=== PATIENT | female | born 1970 | race African-American/Black ===

== ENCOUNTER 2017-10-02 16:25 | Emergency (ER) | payer SELFPAY ==
--- NOTE | 2017-10-02 16:53 | EDPHYS ---
Physician Documentation [facility] Name: Chantelle Menezes Age: 46 yrs Sex: Female : 1970 Arrival Date: 10/02/2017 Time: 16:28 Bed 18 Private MD: ED Physician Zan Baez HPI: 10/02 16:49 This 46 yrs old Black Female presents to ER via Ambulatory with complaints of Abscess. gs 16:49 The patient presents with pain, swelling. The problem is located in the lower right gs first molar. Onset: The symptoms/episode began/occurred 3 day(s) ago. Duration: The symptoms are continuous. Modifying factors: the symptoms are aggravated by chewing. Associated signs and symptoms: Pertinent negatives: fever, inability to eat. Severity of symptoms: At their worst the symptoms were moderate, in the emergency department the symptoms are unchanged. The patient has experienced similar episodes in the past, a few times. 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 - Social history:: Smoking status: Patient uses tobacco products, smokes one-half pack cigarettes per day. - Ebola Screening: : Patient denies travel to an Ebola-affected area in the 21 days before illness onset. ROS: 16:49 All other systems are negative. gs Exam: 16:49 Head/Face: Normocephalic, atraumatic. Eyes: Pupils equal round and reactive to light, gs extra-ocular motions intact. Lids and lashes normal. Conjunctiva and sclera are non-icteric and not injected. Cornea within normal limits. Periorbital areas with no swelling, redness, or edema. Neck: Trachea midline, no thyromegaly or masses palpated, and no cervical lymphadenopathy. Supple, full range of motion without nuchal rigidity, or vertebral point tenderness. No Meningismus. Chest/axilla: Normal chest wall appearance and motion. Nontender with no deformity. No lesions are appreciated. Cardiovascular: Regular rate and rhythm with a normal S1 and S2. No gallops, murmurs, or rubs. Normal PMI, no JVD. No pulse deficits. Respiratory: Lungs have equal breath sounds bilaterally, clear to auscultation and percussion. No rales, rhonchi or wheezes noted. No increased work of breathing, no retractions or nasal flaring. Abdomen/GI: Soft, non-tender, with normal bowel sounds. No distension or tympany. No guarding or rebound. No evidence of tenderness throughout. Back: No spinal tenderness. No costovertebral tenderness. Full range of motion. 16:49 Constitutional: The patient appears alert, awake, uncomfortable. 16:49 ENT: Dental exam: abscess, that is mild, specifically in the lower right first molar (#30), periapical minimal fluctuance if any. tender. Vital Signs: 16:32 BP 140 / 105; Pulse 93; Resp 18; Temp 97.4(TE); Pulse Ox 100% on R/A; Weight 122.47 kg [facility] (R); Height 5 ft. 7 in. (170.18 cm); Pain 7/10; 17:04 BP 142 / 101; Pulse 68; Resp 16; Pulse Ox 99% on R/A; em 16:32 Body Mass Index 42.29 (122.47 kg, 170.18 cm) [facility] MDM: 16:48 Patient medically screened. 16:49 Data reviewed: vital signs, nurses notes. gs Administered Medications: No medications were administered Disposition: 10/02/17 16:52 Discharged to Home. Impression: Periapical abscess with sinus. - Condition is Stable. - Discharge Instructions: Dental Abscess. - Prescriptions for Amoxicillin 875 mg Oral Tablet - take 1 tablet by ORAL route every 12 hours for 10 days; 14 tablet. Tylenol- Codeine #4 300-60 mg Oral Tablet - take 1 tablet by ORAL route every 6 hours As needed; 10 tablet. - Medication Reconciliation Form, Thank You Letter, Antibiotic Education, Prescription Opioid Use form. - Follow up: Private Physician; When: 1 - 2 days; Reason: Re-evaluation by your physician. Signatures: Shanon Rob RN RN aj1 Evelio Thomas, SENIOR HR MANAGER SENIOR HR MANAGER em Zan Baez MD MD Corrections: (The following items were deleted from the chart) 17:09 16:52 10/02/2017 16:52 Discharged to Home. Impression: Periapical abscess with sinus. em Condition is Stable. Forms are Medication Reconciliation Form, Thank You Letter, Antibiotic Education, Prescription Opioid Use. Follow up: Private Physician; When: 1 - 2 days; Reason: Re-evaluation by your physician. gs
--- NOTE | 2017-10-02 16:53 | ER ---
Nurse's Notes [facility] Name: Chantelle Menezes Age: 46 yrs Sex: Female : 1970 Arrival Date: 10/02/2017 Time: 16:28 Bed 18 Private MD: Diagnosis: Periapical abscess with sinus Presentation: 10/02 16:30 Presenting complaint: Patient states: Tooth abscess for the past 3 days. Patient has aj1 not seen a dentist regarding this complaint. Reports nausea, denies fever, vomiting. Transition of care: patient was not received from another setting of care. Onset of symptoms was September 29, 2017. Risk Assessment: Do you want to hurt yourself or someone else? Patient reports no desire to harm self or others. Initial Sepsis Screen: Does the patient meet any 2 criteria? No. Patient's initial sepsis screen is negative. Does the patient have a suspected source of infection? No. Patient's initial sepsis screen is negative. Care prior to arrival: None. 16:30 Method Of Arrival: Ambulatory aj1 16:30 Acuity: TERRY 4 aj1 Triage Assessment: 16:32 General: Appears in no apparent distress. uncomfortable, Behavior is calm, cooperative, aj1 appropriate for age. Pain: Complains of pain in mouth Pain currently is 7 out of 10 on a pain scale. EENT: Reports tooth pain. Neuro: Level of Consciousness is awake, alert, obeys commands, Speech is normal. Cardiovascular: Patient's skin is warm and dry. Respiratory: Airway is patent Respiratory effort is even, unlabored, Respiratory pattern is regular, symmetrical. 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 - Social history:: Smoking status: Patient uses tobacco products, smokes one-half pack cigarettes per day. - Ebola Screening: : Patient denies travel to an Ebola-affected area in the 21 days before illness onset. Screenin:39 Abuse screen: Denies threats or abuse. Nutritional screening: No deficits noted. em Tuberculosis screening: No symptoms or risk factors identified. Fall Risk None identified. Assessment: 16:47 General: Appears in no apparent distress. uncomfortable, Behavior is calm, cooperative. em Pain: Complains of pain in lower right first molar Pain currently is 7 out of 10 on a pain scale. Pain began 2-3 days ago. Neuro: Level of Consciousness is awake, alert, obeys commands, Oriented to person, place, time, situation. Cardiovascular: Capillary refill < 3 seconds Patient's skin is warm and dry. Respiratory: Airway is patent Respiratory effort is even, unlabored, Respiratory pattern is regular, symmetrical. EENT: Oral mucosa is moist. Derm: Skin is intact, Skin is pink, warm \T\ dry. Musculoskeletal: Range of motion: intact in all extremities. 17:00 Reassessment: Patient appears in no apparent distress at this time. I agree with above iw assessment by Evelio Thomas LVN. Vital Signs: 16:32 BP 140 / 105; Pulse 93; Resp 18; Temp 97.4(TE); Pulse Ox 100% on R/A; Weight 122.47 kg aj1 (R); Height 5 ft. 7 in. (170.18 cm); Pain 7/10; 17:04 BP 142 / 101; Pulse 68; Resp 16; Pulse Ox 99% on R/A; em 16:32 Body Mass Index 42.29 (122.47 kg, 170.18 cm) aj1 ED Course: 16:28 Patient arrived in ED. mr 16:32 Triage completed. aj1 16:32 Arm band placed on Patient placed in an exam room. aj1 16:36 Evelio Thomas LVN is Primary Nurse. em 16:38 Patient has correct armband on for positive identification. Bed in low position. Call em light in reach. 16:38 No provider procedures requiring assistance completed. em 16:45 Zan Baez MD is Attending Physician. 17:05 Patient did not have IV access during this emergency room visit. em Administered Medications: No medications were administered Outcome: 16:52 Discharge ordered by . gs 17:05 Discharged to home ambulatory. em 17:05 Condition: good 17:05 Discharge instructions given to patient, Instructed on discharge instructions, follow up and referral plans. no drinking with medication, medication usage, Demonstrated understanding of instructions, follow-up care, medications, Prescriptions given X 2. 17:09 Patient left the ED. em Signatures: Shanon Rob RN RN aj1 Rylee Ivory mr Evelio Thomas, CATIA DESIGNER CATIA DESIGNER em Esme Whitman RN RN iw Zan Baez MD MD gs
== END 2017-10-02 17:09 | disposition home or self-care (01) ==
LOC: ER 16:25
DX: K04.7 Periapical abscess without sinus (principal); E11.9 Type 2 diabetes mellitus without complications; F17.210 Nicotine dependence, cigarettes, uncomplicated; Z79.4 Long term (current) use of insulin
CPT/HCPCS: 99282

== ENCOUNTER 2018-09-23 08:57 | Emergency (ER) | payer SELFPAY ==
[2018-09-23] MEDS ORDERED: LIDOCAINE 1% MPF 5 ML VIAL ONE (09:52)
--- NOTE | 2018-09-23 10:26 | ER ---
Nurse's Notes [facility] Name: Chantelle Menezes Age: 47 yrs Sex: Female : 1970 Arrival Date: 09/23/2018 Time: 09:00 Bed 7 Private MD: Diagnosis: Scalp abscess Presentation: 09/23 09:15 Presenting complaint: Patient states: right occipital abscess for a couple of weeks. sv Denies chills/fever/n/v. Transition of care: patient was not received from another setting of care. Onset of symptoms was August 2018. Risk Assessment: Do you want to hurt yourself or someone else? Patient reports no desire to harm self or others. Initial Sepsis Screen: Does the patient meet any 2 criteria? No. Patient's initial sepsis screen is negative. Does the patient have a suspected source of infection? No. Patient's initial sepsis screen is negative. Care prior to arrival: None. 09:15 Method Of Arrival: Ambulatory sv 09:15 Acuity: TERRY 3 sv Triage Assessment: 09:24 General: Appears in no apparent distress. uncomfortable, well groomed, well developed, sv Behavior is calm, cooperative, appropriate for age. Pain: Complains of pain in scalp Pain currently is 7 out of 10 on a pain scale. Neuro: Level of Consciousness is awake, alert, obeys commands, Oriented to person, place, time, situation, Moves all extremities. Full function Gait is steady. Respiratory: Respiratory effort is even, unlabored, Respiratory pattern is regular, symmetrical. Derm: Skin is pink, warm \T\ dry. Musculoskeletal: Range of motion: intact in all extremities. Historical: - Allergies: : No Known Allergies; sv - Home Meds: :23 Insulin: Novolin 70/30 Sub-Q twice a day [Active]; sv - PMHx: 09:23 Diabetes - IDDM; sv - PSHx: 09:23 eye surgery; Thyroidectomy; Hysterectomy; sv - Immunization history:: Adult Immunizations up to date, Flu vaccine is up to date. - Social history:: Smoking status: Patient uses tobacco products, smokes one-half pack cigarettes per day, Patient uses alcohol, on a daily basis. - Ebola Screening: : No symptoms or risks identified at this time. - Family history:: not pertinent. - Hospitalizations: : No recent hospitalization is reported. Screenin:24 Abuse screen: Denies threats or abuse. Denies injuries from another. Nutritional sv screening: No deficits noted. Tuberculosis screening: No symptoms or risk factors identified. Fall Risk None identified. Assessment: 09:41 Reassessment: Patient appears in no apparent distress at this time. No changes from sv previously documented assessment. Patient and/or family updated on plan of care and expected duration. Pain level reassessed. Patient is alert, oriented x 3, equal unlabored respirations, skin warm/dry/pink. Vital Signs: 09:23 BP 142 / 91; Pulse 97; Resp 18; Temp 97.6; Pulse Ox 99% ; Weight 99.79 kg; Height 5 ft. sv 7 in. (170.18 cm); Pain 7/10; 09:23 Body Mass Index 34.46 (99.79 kg, 170.18 cm) sv ED Course: 09:00 Patient arrived in ED. as 09:15 Malissa Fairchild RN is Primary Nurse. sv 09:19 Triage completed. sv 09:22 Tru Hughes MD is Attending Physician. rn 09:24 Arm band placed on. sv 09:24 Patient has correct armband on for positive identification. Bed in low position. Call sv light in reach. Pulse ox on. NIBP on. Door closed. Head of bed elevated. 09:25 ED physician to see patient. sv 09:42 Placed in gown. sv 09:44 Assist provider with I \T\ D: Set up I\T\D tray. sv 10:17 Assist provider with I \T\ D: of an abscess on right occipital head Performed by Kaleigh Adair PROFILER OPERATOR-C Dressing with 4X4s, tape Patient tolerated well. 10:24 Denny Welch MD is Referral Physician. rn 10:25 Wound care: located on right base of the skull was cleaned with soap and water, dressed sg with 4X4s, band aid, Patient tolerated well. 10:49 Patient did not have IV access during this emergency room visit. sv Administered Medications: 10:00 Drug: Lidocaine (1 %) 1 vials {Note: given to Kaleigh MANZANARES for procedure.} Volume: 5 ml; sv Route: Infiltration; 10:18 Drug: Clindamycin 300 mg Route: PO; sv 10:49 Follow up: Response: No adverse reaction sv Point of Care Testing: Blood Glucose: 09:24 Blood Glucose: 295 mg/dL; sv Ranges: Outcome: 10:25 Discharge ordered by . rn 10:49 Patient left the ED. sg 10:49 Discharged to home ambulatory. sv 10:49 Condition: stable 10:49 Discharge instructions given to patient, Instructed on discharge instructions, follow up and referral plans. medication usage, Demonstrated understanding of instructions, follow-up care, medications, Prescriptions given X 1. Signatures: Malissa Fairchild RN RN sv Gay, Steven, RN RN sg Martinez, Amelia as Nieto, Roman, MD MD rn
--- NOTE | 2018-09-23 10:27 | EDPHYS ---
Physician Documentation [facility] Name: Chantelle Menezes Age: 47 yrs Sex: Female : 1970 Arrival Date: 09/23/2018 Time: 09:00 Bed 7 Private MD: ED Physician Tru Hughes HPI: 09/23 10:21 This 47 yrs old Black Female presents to ER via Ambulatory with complaints of Boil. rn 10:21 the patient presents with a swollen area of the right base of the skull. Description: rn The affected area is small, draining, erythematous, fluctuant. Onset: The symptoms/episode began/occurred 2 week(s) ago. Modifying factors: the symptoms are alleviated by nothing, the symptoms are aggravated by squeezing the lesion and expressing the contents, touching. Severity of symptoms: At their worst the symptoms were moderate, in the emergency department the symptoms are unchanged. The patient has not experienced similar symptoms in the past. Historical: - Allergies: : No Known Allergies; sv - Home Meds: : Insulin: Novolin 70/30 Sub-Q twice a day [Active]; sv - PMHx: 09: Diabetes - IDDM; sv - PSHx: :23 eye surgery; Thyroidectomy; Hysterectomy; sv - Immunization history:: Adult Immunizations up to date, Flu vaccine is up to date. - Social history:: Smoking status: Patient uses tobacco products, smokes one-half pack cigarettes per day, Patient uses alcohol, on a daily basis. - Ebola Screening: : No symptoms or risks identified at this time. - Family history:: not pertinent. - Hospitalizations: : No recent hospitalization is reported. ROS: 10:21 Constitutional: Negative for fever, chills, and weight loss, Eyes: Negative for injury, rn pain, redness, and discharge, ENT: Negative for injury, pain, and discharge, Neck: Negative for injury, pain, and swelling, Cardiovascular: Negative for chest pain, palpitations, and edema, Respiratory: Negative for shortness of breath, cough, wheezing, and pleuritic chest pain, Back: Negative for injury and pain, Skin: + abscess on scalp at base of head Neuro: Negative for headache, weakness, numbness, tingling, and seizure. Exam: 10:21 Constitutional: This is a well developed, well nourished patient who is awake, alert, rn and in no acute distress. Head/Face: Normocephalic, atraumatic. Skin: + 3-4 cm area of induration and central fluctuance at right base of head on scalp, multiple surrounding pustules, not overlying spine.Does not extend to right ear or neck. MS/ Extremity: Pulses equal, no cyanosis. Neurovascular intact. Full, normal range of motion. Equal circumference. Neuro: Awake and alert, GCS 15, oriented to person, place, time, and situation. Cranial nerves II-XII grossly intact. Motor strength 5/5 in all extremities. Sensory grossly intact. Cerebellar exam normal. Normal gait. Vital Signs: 09:23 BP 142 / 91; Pulse 97; Resp 18; Temp 97.6; Pulse Ox 99% ; Weight 99.79 kg; Height 5 ft. sv 7 in. (170.18 cm); Pain 7/10; 09:23 Body Mass Index 34.46 (99.79 kg, 170.18 cm) sv Procedures: 10:14 I \T\ D: Incision and drainage was performed for an abscess of the right base of the kb skull Prepped with Betadine, Anesthetized with 2.5 ml's 1% Lidocaine. Incised with #11 blade. Drained large amount purulent fluid. Cultures obtained. Abscess cavity explored. Packed with iodoform gauze, Dressing: sterile 4x4 gauze, the patient tolerated the procedure well. MDM: 09:23 Patient medically screened. rn 10:21 Differential diagnosis: abscess. Data reviewed: vital signs, nurses notes, and as a rn result, I will discharge patient. Counseling: I had a detailed discussion with the patient and/or guardian regarding: the historical points, exam findings, and any diagnostic results supporting the discharge/admit diagnosis, the need for outpatient follow up, to return to the emergency department if symptoms worsen or persist or if there are any questions or concerns that arise at home. Response to treatment: the patient's symptoms have markedly improved after treatment, and as a result, I will discharge patient. Special discussion: I discussed with the patient/guardian in detail that at this point there is no indication for admission to the hospital. It is understood, however, that if the symptoms persist or worsen the patient needs to return immediately for re-evaluation. 09/23 09:20 Order name: Glucose, Ancillary Testing; Complete Time: 09:30 EDMS 09/23 09:31 Order name: Wound Culture rn 09/23 09:31 Order name: Incision \T\ Drainage Setup; Complete Time: 09:41 rn Administered Medications: 10:00 Drug: Lidocaine (1 %) 1 vials {Note: given to Kaleigh BOOM TRUCK DRIVER for procedure.} Volume: 5 ml; sv Route: Infiltration; 10:18 Drug: Clindamycin 300 mg Route: PO; sv 10:49 Follow up: Response: No adverse reaction sv Point of Care Testing: Blood Glucose: 09:24 Blood Glucose: 295 mg/dL; sv Ranges: Critical Glucose Levels:Adult <50 mg/dl or >400 mg/dl <40 mg/dl or >180 mg/dl Disposition: 16:50 Co-signature as Attending Physician, Tru Hughes MD. rn Disposition: 09/23/18 10:25 Discharged to Home. Impression: Scalp abscess. - Condition is Stable. - Discharge Instructions: Skin Abscess, Wound Packing. - Prescriptions for Clindamycin HCl 300 mg Oral Capsule - take 1 capsule by ORAL route every 6 hours for 10 days; 40 capsule. - Medication Reconciliation Form, Thank You Letter, Antibiotic Education, Prescription Opioid Use form. - Follow up: Denny Welch MD; When: 2 - 3 days; Reason: Recheck today's complaints, Re-evaluation by your physician. - Problem is new. - Symptoms have improved. Signatures: Dispatcher [employer] [facility] Kaleigh Adair, ALLIED HEALTH TEACHER-C ALLIED HEALTH TEACHER-CkMalissa Gaston RN RN sv Gay, Steven, RN RN sg Nieto, Roman, MD MD internet architect: (The following items were deleted from the chart) 10:15 10:14 I \T\ D: Incision and drainage was performed for an abscess of the right base of kb the skull Prepped with Betadine, Anesthetized with 2.5 ml's 1% Lidocaine. Incised with #11 blade. Drained large amount purulent fluid. Abscess cavity explored. Packed with iodoform gauze, Dressing: sterile 4x4 gauze, the patient tolerated the procedure well, kb 10:49 10:25 09/23/2018 10:25 Discharged to Home. Impression: Scalp abscess. Condition is sg Stable. Forms are Medication Reconciliation Form, Thank You Letter, Antibiotic Education, Prescription Opioid Use. Follow up: Denny Welch; When: 2 - 3 days; Reason: Recheck today's complaints, Re-evaluation by your physician. Problem is new. Symptoms have improved. rn
[2018-09-23] MEDS ORDERED: CLINDAMYCIN HCL 150 MG CAP ONE (10:31)
== END 2018-09-23 10:49 | disposition home or self-care (01) ==
LOC: ER 08:57
PROC: 0J900ZZ Drainage of Scalp Subcutaneous Tissue and Fascia, Open Approach (ICD-10-PCS; principal; 2018-09-23)
DX: L02.811 Cutaneous abscess of head [any part, except face] (principal); E11.9 Type 2 diabetes mellitus without complications; Z79.4 Long term (current) use of insulin; F17.210 Nicotine dependence, cigarettes, uncomplicated
CPT/HCPCS: 82962; 87070; 87077; 87186; 87205; 99284

== ENCOUNTER 2018-10-23 09:31 | Inpatient (IN) | payer SELFPAY ==
[2018-10-23] MEDS ORDERED: LIDOCAINE VISCOUS 2% SOLN 15 ML UDC ONE (10:17)
[2018-10-23] MEDS ORDERED: NA CHLORIDE 0.9% 1,000 ML ONE (10:30)
[2018-10-23] MEDS ORDERED: FENTANYL CITR 100 MCG/2 ML ONE ×2 (10:30→16:21)
[2018-10-23] MEDS ORDERED: VANCOMYCIN/NS 1 gm 1 GM/250 ML BAG IV ONE (10:30)
[2018-10-23] MEDS ORDERED: CEFEPIME 1 GM/100 ML BAG IV ONE (10:30)
[2018-10-23 10:57] LABS: Absolute Lymphocytes (CBC) 2.1 K/uL (0.7-4.9); Basophils % 0.2 % (0-1.3); Hematocrit 41.2 % (36.0-45.0); Lymphocytes % 25.7 % (15.3-44.8); MPV 10.9 fL (7.6-11.3); RBC Red Blood Cell Count 4.72 M/uL (3.86-4.86)
[2018-10-23 11:08] LABS: BUN Blood Urea Nitrogen 9 mg/dL (7-18); Bicarbonate 28 mmol/L (21-32); Glucose Level 356 mg/dL (74-106); Potassium 3.8 mmol/L (3.5-5.1); Sodium Level 140 mmol/L (136-145)
--- NOTE | 2018-10-23 11:51 | RAD REPORT ---
EXAM DESCRIPTION: CT - Pelvis W/Cont - 10/23/2018 11:23 am CLINICAL HISTORY: Pelvic pain/abscess COMPARISON: None. TECHNIQUE: Computed axial tomography of the pelvis was obtained. 50 cc Isovue-[address] scans are performed using dose optimization technique as appropriate and may include automated exposure control or mA/KV adjustment according to patient size. FINDINGS: A 35 millimeter fluid collection with an enhancing rim consistent with abscess is present within the subcutaneous tissue of the medial right buttock. Stranding is present within the adjacent fat. Mildly enlarged right inguinal lymph nodes likely reactive in nature. Rectal wall is normal caliber. No abnormality of the vagina seen. Hysterectomy. No ascites. Small umbilical hernia contains fat IMPRESSION: 35 millimeter abscess medial right buttock
--- NOTE | 2018-10-23 12:20 | EDPHYS ---
Physician Documentation [facility] Name: Chantelle Menezes Age: 47 yrs Sex: Female : 1970 Arrival Date: 10/23/2018 Time: 09:32 Bed 15 Private MD: None, None ED Physician Deon Reeves HPI: 10/23 11:33 This 47 yrs old Black Female presents to ER via Ambulatory with complaints of Cyst. snw 11:33 Onset: The symptoms/episode began/occurred suddenly, 3 day(s) ago, and became worse and snw became persistent. Associated signs and symptoms: Pertinent positives: pain, increase in size. Modifying factors: The patient symptoms are alleviated by nothing, the patient symptoms are aggravated by movement. cyst to posterior occiput one month ago. It is unknown whether or not the patient has recently seen a physician. Historical: - Home Meds: 09:52 Insulin: Novolin 70/30 Sub-Q twice a day [Active]; ph - PMHx: 09:52 Diabetes - IDDM; ph - PSHx: 09:52 eye surgery; Thyroidectomy; Hysterectomy; ph - Immunization history:: Adult Immunizations unknown. - Social history:: Smoking status: Patient/guardian denies using tobacco. - Ebola Screening: : No symptoms or risks identified at this time. ROS: 11:29 Constitutional: Negative for fever, chills, and weight loss, Eyes: Negative for injury, snw pain, redness, and discharge, ENT: Negative for injury, pain, and discharge, Neck: Negative for injury, pain, and swelling, Cardiovascular: Negative for chest pain, palpitations, and edema, Respiratory: Negative for shortness of breath, cough, wheezing, and pleuritic chest pain, Abdomen/GI: Negative for abdominal pain, nausea, vomiting, diarrhea, and constipation, Back: Negative for injury and pain, : Negative for injury, bleeding, discharge, and swelling, MS/Extremity: Negative for injury and deformity, Neuro: Negative for headache, weakness, numbness, tingling, and seizure. 11:29 Skin: Positive for painful cyst to buttock/vaginal area. Exam: 11:29 Constitutional: This is a well developed, well nourished patient who is awake, alert, snw and in no acute distress. 11:29 Eyes: Pupils equal round and reactive to light, extra-ocular motions intact. Lids and lashes normal. Conjunctiva and sclera are non-icteric and not injected. Cornea within normal limits. Periorbital areas with no swelling, redness, or edema. ENT: Nares patent. No nasal discharge, no septal abnormalities noted. Tympanic membranes are normal and external auditory canals are clear. Oropharynx with no redness, swelling, or masses, exudates, or evidence of obstruction, uvula midline. Mucous membranes moist. Neck: Trachea midline, no thyromegaly or masses palpated, and no cervical lymphadenopathy. Supple, full range of motion without nuchal rigidity, or vertebral point tenderness. No Meningismus. Chest/axilla: Normal chest wall appearance and motion. Nontender with no deformity. No lesions are appreciated. Cardiovascular: Regular rate and rhythm with a normal S1 and S2. No gallops, murmurs, or rubs. Normal PMI, no JVD. No pulse deficits. Respiratory: Lungs have equal breath sounds bilaterally, clear to auscultation and percussion. No rales, rhonchi or wheezes noted. No increased work of breathing, no retractions or nasal flaring. Abdomen/GI: Soft, non-tender, with normal bowel sounds. No distension or tympany. No guarding or rebound. No evidence of tenderness throughout. Back: No spinal tenderness. No costovertebral tenderness. Full range of motion. MS/ Extremity: Pulses equal, no cyanosis. Neurovascular intact. Full, normal range of motion. Neuro: Awake and alert, GCS 15, oriented to person, place, time, and situation. Cranial nerves II-XII grossly intact. Motor strength 5/5 in all extremities. Sensory grossly intact. Cerebellar exam normal. Normal gait. Psych: Awake, alert, with orientation to person, place and time. Behavior, mood, and affect are within normal limits. 11:29 Head/face: Noted is swelling, that is moderate, of the right eye, of the ptosis. 11:29 Skin: Appearance: normal except for affected area, abscess, that is large, approximately 9 cm(s), of the superior and lateral to anus up to inferiolateral labia majora, with induration, with pointing, that is subtle. Vital Signs: 09:41 BP 132 / 79; Pulse 106; Resp 16; Temp 97.0(T); Pulse Ox 97% ; Weight 86.18 kg; Height 5 ms ft. 7 in. (170.18 cm); Pain 10/10; 11:14 BP 112 / 75; Pulse 91; Resp 18; Pulse Ox 99% on R/A; ph 12:00 BP 117 / 72; Pulse 86; Resp 18; Pulse Ox 98% on R/A; ph 13:06 BP 105 / 67; Pulse 84; Resp 16; Temp 97.5; Pulse Ox 99% on R/A; ph 09:41 Body Mass Index 29.76 (86.18 kg, 170.18 cm) ms MDM: 09:57 Patient medically screened. snw 12:11 Data reviewed: vital signs, nurses notes, lab test result(s), radiologic studies. Data snw interpreted: Pulse oximetry: on room air is 99 %. Interpretation: normal. Counseling: I had a detailed discussion with the patient and/or guardian regarding: the historical points, exam findings, and any diagnostic results supporting the discharge/admit diagnosis, lab results, radiology results, the need for further work-up and treatment in the hospital. Physician consultation: Hany Alberts MD was called at 12:13, was contacted at 12:13, regarding admission, to the medical/surgical unit. patient's condition, would like consultation with Dr. Donovan, per Dr. Reeves conversation. 10/23 10:08 Order name: CBC with Diff; Complete Time: 11:11 snw 10/23 10:08 Order name: Chem 7; Complete Time: 11:11 [facility] 10/23 10:08 Order name: Blood Culture Adult (2) [facility] 10/23 12:29 Order name: Urine Microscopic Only [facility] 10/23 13:28 Order name: Urine Dipstick--Ancillary (enter results) bd 10/23 13:52 Order name: Urine Dipstick-Ancillary; Complete Time: 13:54 EDMS 10/23 10:08 Order name: CT Pelvis w cont; Complete Time: 12:01 snw 10/23 12:16 Order name: Chest Single View XRAY; Complete Time: 13:03 snw 10/23 12:16 Order name: EKG; Complete Time: 12:19 w 10/23 12:16 Order name: EKG - Nurse/Tech; Complete Time: 13:17 snw 10/23 12:16 Order name: NPO; Complete Time: 13:06 sn 10/23 12:16 Order name: Misc. Order: Surgical consent to chart; Complete Time: 13:15 snw 10/23 12:16 Order name: consult Order-Arianna Amaya MD ([facility]) [facility] 10/23 12:29 Order name: Urine Test (obtain specimen); Complete Time: 13:42 snw 10/23 12:29 Order name: Urine Dipstick-Ancillary (obtain specimen); Complete Time: 13:43 snw Administered Medications: 10:05 Drug: Viscous Lidocaine Liquid (4 %) 1 application Route: Mucous Membrane; ph 10:41 Drug: NS 0.9% 1000 ml Route: IV; Rate: 125 ml/hr; Site: right forearm; ph 13:04 Follow up: Response: No adverse reaction; IV Status: Infusion continued upon admission ph 10:42 Drug: fentaNYL (PF) 50 mcg Route: IVP; Site: right forearm; ph 11:10 Follow up: Response: No adverse reaction; Pain is decreased ph 11:00 Drug: Cefepime 1 grams Route: IVPB; Rate: 200 ml/hr; Infused Over: 30 mins; Site: right ph forearm; 11:45 Follow up: Response: No adverse reaction; IV Status: Completed infusion ph 11:46 Drug: vancoMYCIN 1 grams Route: IVPB; Infused Over: 2 hrs; Site: right forearm; ph 13:05 Follow up: Response: No adverse reaction; IV Status: Infusion continued upon admission ph 11:46 Drug: fentaNYL (PF) 50 mcg Route: IVP; Site: right forearm; ph 13:05 Follow up: Response: No adverse reaction; Pain is decreased ph Disposition: 10/24 07:42 Co-signature as Attending Physician, Deon Reeves MD I agree with the assessment and kdr plan of care. Disposition: 10/23/18 12:19 Hospitalization ordered by Hany Alberts for Inpatient Admission. Preliminary diagnosis are Abscess of area from lateral and distal of right labia major to lateral and proximal of anus, Diabetes mellitus due to underlying condition with hyperglycemia. - Bed requested for Telemetry/MedSurg (Inpatient). - Status is Inpatient Admission. ph - Condition is Stable. - Problem is new. - Symptoms are unchanged. UTI on Admission? No Signatures: Dispatcher [employer] EDKelly Mandujano RN RN dw Deon Reeves MD MD [facility] Domonique Sotelo, TECHNICAL COMMUNICATION TEACHER-C TECHNICAL COMMUNICATION TEACHER-Csnw Monica Zayas, RN RN ph Corrections: (The following items were deleted from the chart) 10/23 12:34 12:19 Hospitalization Ordered by Hany Alberts MD for Inpatient Admission. Preliminary dw diagnosis is Abscess of area from lateral and distal of right labia major to lateral and proximal of anus; Diabetes mellitus due to underlying condition with hyperglycemia. Bed requested for Telemetry/MedSurg (Inpatient). Status is Inpatient Admission. Condition is Stable. Problem is new. Symptoms are unchanged. UTI on Admission? No. snw 13:59 12:34 10/23/2018 12:19 Hospitalization Ordered by Hany Alberts MD for Inpatient ph Admission. Preliminary diagnosis is Abscess of area from lateral and distal of right labia major to lateral and proximal of anus; Diabetes mellitus due to underlying condition with hyperglycemia. Bed requested for Telemetry/MedSurg (Inpatient). Status is Inpatient Admission. Condition is Stable. Problem is new. Symptoms are unchanged. UTI on Admission? No. dw
--- NOTE | 2018-10-23 12:20 | ER ---
Nurse's Notes [facility] Name: Chantelle Menezes Age: 47 yrs Sex: Female : 1970 Arrival Date: 10/23/2018 Time: 09:32 Bed 15 Private MD: None, None Diagnosis: Abscess of area from lateral and distal of right labia major to lateral and proximal of anus;Diabetes mellitus due to underlying condition with hyperglycemia Presentation: 10/23 09:48 Presenting complaint: Patient states: "Cyst" to R inner thigh/groin area, denies ph drainage, also denies fever, N/V. Transition of care: patient was not received from another setting of care. Onset of symptoms was October 23, 2018. Risk Assessment: Do you want to hurt yourself or someone else? Patient reports no desire to harm self or others. Initial Sepsis Screen: Does the patient meet any 2 criteria? No. Patient's initial sepsis screen is negative. Does the patient have a suspected source of infection? No. Patient's initial sepsis screen is negative. Care prior to arrival: None. 09:48 Method Of Arrival: Ambulatory ph 09:48 Acuity: TERRY 4 ph Historical: - Home Meds: 09:52 Insulin: Novolin 70/30 Sub-Q twice a day [Active]; ph - PMHx: 09:52 Diabetes - IDDM; ph - PSHx: 09:52 eye surgery; Thyroidectomy; Hysterectomy; ph - Immunization history:: Adult Immunizations unknown. - Social history:: Smoking status: Patient/guardian denies using tobacco. - Ebola Screening: : No symptoms or risks identified at this time. Screenin:52 Abuse screen: Denies threats or abuse. Denies injuries from another. Nutritional ph screening: No deficits noted. Tuberculosis screening: No symptoms or risk factors identified. Fall Risk None identified. Assessment: 10:30 General: Appears in no apparent distress. uncomfortable, well groomed, Behavior is ph calm, cooperative, appropriate for age, Denies fever. Pain: Complains of pain in groin. Neuro: Level of Consciousness is awake, alert, obeys commands, Oriented to person, place, time, situation. Cardiovascular: Capillary refill < 3 seconds in bilateral fingers Patient's skin is warm and dry. Respiratory: Airway is patent Respiratory effort is even, unlabored, Respiratory pattern is regular, symmetrical. GI: Patient currently denies diarrhea, nausea, vomiting. Derm: Skin is healthy with good turgor, Skin is pink, warm \\T\\ dry. Abscess located on right gluteal fold is golf ball sized, has no drainage, is hot to touch, is red, is raised. Musculoskeletal: Circulation, motion, and sensation intact. Range of motion: intact in all extremities. 11:13 Reassessment: Patient appears in no apparent distress at this time. Patient and/or ph family updated on plan of care and expected duration. Pain level reassessed. Patient is alert, oriented x 3, equal unlabored respirations, skin warm/dry/pink. Pt reports that pain has decreased after IV pain medication, taken to CT via stretcher. 13:20 Reassessment: Patient appears in no apparent distress at this time. Patient and/or ph family updated on plan of care and expected duration. Pain level reassessed. Patient is alert, oriented x 3, equal unlabored respirations, skin warm/dry/pink. Pt ambulated to restroom to obtain urine sample, attempted to call report to 4th floor, receiving nurse at lunch. Vital Signs: 09:41 BP 132 / 79; Pulse 106; Resp 16; Temp 97.0(T); Pulse Ox 97% ; Weight 86.18 kg; Height 5 ms ft. 7 in. (170.18 cm); Pain 10/10; 11:14 BP 112 / 75; Pulse 91; Resp 18; Pulse Ox 99% on R/A; ph 12:00 BP 117 / 72; Pulse 86; Resp 18; Pulse Ox 98% on R/A; ph 13:06 BP 105 / 67; Pulse 84; Resp 16; Temp 97.5; Pulse Ox 99% on R/A; ph 09:41 Body Mass Index 29.76 (86.18 kg, 170.18 cm) ms ED Course: 09:32 Patient arrived in ED. dl4 09:32 None, None is Private Physician. dl4 09:40 Monica Zayas, RN is Primary Nurse. ph 09:51 Triage completed. ph 09:52 Arm band placed on Patient placed in an exam room, on a stretcher. ph 09:52 Patient has correct armband on for positive identification. Placed in gown. Bed in low ph position. Call light in reach. Side rails up X 1. Pulse ox on. NIBP on. Door closed. Noise minimized. Warm blanket given. Head of bed elevated. 09:55 Domonique Sotelo FNP-C [facility]. snw 09:56 Deon Reeves MD is Attending Physician. snw 10:40 Inserted saline lock: 22 gauge in right forearm, using aseptic technique. Missed ph attempt(s): 22 gauge in right antecubital area. Bleeding controlled, band aid applied, catheter tip intact. 11:26 CT Pelvis w cont In Process Unspecified. EDMS 12:16 Hany Alberts MD is Hospitalizing Provider. snw 12:45 Chest Single View XRAY In Process Unspecified. EDMS 13:02 EKG done, by battery service technician. reviewed by Domonique GILBERT. sm3 13:09 No provider procedures requiring assistance completed. Patient admitted, IV remains in ph place. Administered Medications: 10:05 Drug: Viscous Lidocaine Liquid (4 %) 1 application Route: Mucous Membrane; ph 10:41 Drug: NS 0.9% 1000 ml Route: IV; Rate: 125 ml/hr; Site: right forearm; ph 13:04 Follow up: Response: No adverse reaction; IV Status: Infusion continued upon admission ph 10:42 Drug: fentaNYL (PF) 50 mcg Route: IVP; Site: right forearm; ph 11:10 Follow up: Response: No adverse reaction; Pain is decreased ph 11:00 Drug: Cefepime 1 grams Route: IVPB; Rate: 200 ml/hr; Infused Over: 30 mins; Site: right ph forearm; 11:45 Follow up: Response: No adverse reaction; IV Status: Completed infusion ph 11:46 Drug: vancoMYCIN 1 grams Route: IVPB; Infused Over: 2 hrs; Site: right forearm; ph 13:05 Follow up: Response: No adverse reaction; IV Status: Infusion continued upon admission ph 11:46 Drug: fentaNYL (PF) 50 mcg Route: IVP; Site: right forearm; ph 13:05 Follow up: Response: No adverse reaction; Pain is decreased ph Outcome: 12:19 Decision to Hospitalize by Provider. snw 13:59 Patient left the ED. ph Signatures: Dispatcher [employer] EDPR Domonique Sotelo FNP-C FNP-Rylee Myers ms, Patricia, RN RN ph Madhu, Adriane sm3 Logan Henry dl4 Corrections: (The following items were deleted from the chart) 11:07 10:53 Cefepime 1 grams IVPB at 200 ml/hr in right forearm over 30 mins ph ph 11:49 11:46 fentaNYL (PF) 50 mcg IVP in right antecubital ph ph
--- NOTE | 2018-10-23 13:00 | RAD REPORT ---
EXAM DESCRIPTION: RAD - Chest Single View - 10/23/2018 12:48 pm CLINICAL HISTORY: Preop chest, pending soft tissue mass removal from the leg COMPARISON: January 2015 TECHNIQUE: AP portable chest image was obtained 1247 hours . FINDINGS: No acute lung parenchymal process seen. Lung markings are similar to comparison. A slightl y under penetrated technique and body habitus accentuate lower lung field markings. Heart and vascula ture are normal. No measurable pleural effusion and no pneumothorax. No acute bony abnormality seen. No acute aortic findings suspected. IMPRESSION: No acute cardiopulmonary process. No significant changes from comparison.
--- NOTE | 2018-10-23 13:26 | EKG ---
Test Date: 2018-10-23 Test Time: 12:48:17 Net Maker: RAEGAN MEASUREMENT RESULTS: Intervals: Rate: 79 SC: 110 QRSD: 82 QT: 370 QTc: 424 [place]: P: 42 SC: 110 QRS: 82 T: 8 INTERPRETIVE STATEMENTS: Sinus rhythm with short SC Otherwise normal ECG Compared to ECG 02/01/2015 11:18:03 Short SC interval now present Sinus arrhythmia no longer present Electronically Signed On 10-23-18 13:25:30 CDT by Garett Salomon
[2018-10-23] MEDS ORDERED: D50W 25 GM/50 ML SYRINGE IV PRN (13:43)
[2018-10-23] MEDS ORDERED: GLUCAGON 1 MG/VIAL IM PRN (13:43)
[2018-10-23] MEDS ORDERED: ALBUTEROL 2.5 MG/3 ML NEB SOL NEB PRN (13:43)
[2018-10-23] MEDS ORDERED: NA CHLORIDE 0.9% 1,000 ML IV SCH (13:43)
[2018-10-23] MEDS ORDERED: MORPHINE 4 MG/ML SYR IV PRN (13:43)
[2018-10-23] MEDS ORDERED: IPRATROPIUM BROM 0.5MG/2.5ML NEB PRN (13:43)
[2018-10-23] MEDS ORDERED: ONDANSETRON 4 MG/2 ML VIAL IV PRN (13:43)
[2018-10-23 13:49] LABS: Urine Blood 2+ (NEG); Urine Glucose 2+ (NEG); Urine Protein NEGATIVE (NEG); Urine pH 6.5 (5.0-7.0)
[2018-10-23] MEDS ORDERED: VANCOMYCIN 500 MG in NA CHLORIDE 0.9% 100 ML IVPB ONE (14:00)
[2018-10-23] MEDS ORDERED: INSULIN -REGULAR HUMAN 50 UNIT/0.5 ML ML ONE (15:24)
[2018-10-23] MEDS: BUPIVACAINE 0.5% PF 10 ML VIAL ONE ×2 (15:46→16:00)
--- NOTE | 2018-10-23 16:02 | P.HP ---
Date of Service: 10/23/18 PC: This 47-year-old female presents emergency room with severe pain in the right upper portion of her thigh. HPC: Patient noticed pain and discomfort over the last 12:48 p.m.. She has a large area about the size of a plum in that area that is causing increasing pain in discomfort. PMH: Patient is a diabetic. PSHx: Recently had a abscess positive for MR Debbie. opened and drained about a month ago. SOC: No known allergy SYS REVIEW: States that she is otherwise in good health O/E awake alert HEENT: Within normal limits Chest: Air entry equal bilaterally ABD: Saw LOCO: Abscess up on the upper inner part of her right thigh DATA: Elevated white count, CT scan demonstrates abscess IMPRESSION: Abscess of the right upper thigh PLAN: I was taken room for incision, drainage, sharp debridement of this abscess. The risks of this procedure have been discussed. The possibility of bleeding, infection, recurrence and need for further surgeries and procedures as well as scarring was explained. She understands and wants us to proceed.
[2018-10-23] MEDS ORDERED: MIDAZOLAM HCL 2 MG/2 ML INJ ONE ×2 (16:16→16:21)
[2018-10-23] MEDS ORDERED: LIDOCAINE 1% MPF 5 ML VIAL ONE ×2 (16:21→16:22)
[2018-10-23] MEDS ORDERED: PROPOFOL 200 MG/20 ML VIAL IV ONE (16:21)
[2018-10-23] MEDS ORDERED: LIDOCAINE 1% MPF 2 ML AMPULE ONE ×2 (16:23)
--- NOTE | 2018-10-23 16:26 | P.CNS ---
Date of Consult: 10/13/18 Reason for Consult: Medical management Requesting Physician: Hany Alberts Chief Complaint: Absence of high History of Present Illness: 47-year-old female with past medical history of diabetes who admitted to the hospital for abscess of the upper thigh. General surgery was called from the ER to admit the patient and medicine team was consulted for medical management. Allergies No Known Allergies Allergy (Unverified 07/05/15 00:25) Home medications list reviewed: No Home Medications: Insulin NPH Hum/Reg Insulin Hm [Novolin 70-30 100 Unit/ml Vial] 100 unit SQ BID 10/23/18 - Past Medical/Surgical History Diabetic: Yes -: Diabetic -: None - Social History Smoking Status: Current every day smoker Alcohol use: Yes CD- Drugs: No Caffeine use: No Place of Residence: Home Review of Systems 10-point ROS is otherwise unremarkable Physical Examination Temp Pulse Resp BP Pulse Ox 98.0 F 84 18 130/80 98 10/23/18 14:22 10/23/18 14:22 10/23/18 14:22 10/23/18 14:22 10/23/18 14:22 General: Alert, In no apparent distress HEENT: Atraumatic, PERRLA, Mucous membr. moist/pink, EOMI, Sclerae nonicteric Neck: Supple, 2+ carotid pulse no bruit, No LAD, Without JVD or thyroid abnormality Respiratory: Clear to auscultation bilaterally, Normal air movement Cardiovascular: Regular rate/rhythm, Normal S1 S2 Gastrointestinal: Normal bowel sounds, No tenderness Musculoskeletal: Swelling, Erythema, Tenderness, Warmth Integumentary: No rashes Neurological: Normal gait, Normal speech, Normal tone, Normal affect Lymphatics: No axilla or inguinal lymphadenopathy Laboratory Data (last 24 hrs) 10/23/18 10:40: Sodium 140, Potassium 3.8, BUN 9, Creatinine 0.71, Glucose 356 H 10/23/18 10:40: WBC 8.1, Hgb 13.8, Hct 41.2, Plt Count 155 - Problems (1) Abscess Current Visit: Yes Status: Acute Plan: Patient with abscess of the upper thigh on the CT scan -general surgery consulted from the ER. Primary on the case -plans for or procedure today -NPO and IV fluids along with IV antibiotics at this time -blood culture and wound culture collected here in the hospital will follow up with the results (2) Diabetes mellitus Current Visit: Yes Status: Acute Plan: Insulin sliding scale and Accu-Cheks at this time will monitor patient closely here in the hospital. 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
--- NOTE | 2018-10-23 16:28 | P.OP ---
Preoperative diagnosis: Abscess of the right upper thigh Postoperative diagnosis: The same Primary procedure: Incision, drainage, sharp debridement of abscess of the right upper thigh Anesthesia: General Estimated blood loss: Less than 10 cc Specimen: 9 said Operative Technique: The patient brought the operating room and placed supine on the table general anesthesia, she was frog-legged so cell access to this area on the right upper thigh. The area itself was exquisitely painful preoperatively and was difficult to exactly isolate for description purposes. As she is now fully asleep we conceded is actually in the skin fold of the right upper thigh on the medial aspect this below the groin crease. This area shows also evidence of hidradenitis, and chronic edema. The area was prepped with a Betadine solution, she was draped in usual aseptic manner. Once again inspected this area could see the area had actually opened and drained. This break in the skin was opened using an 11 blade. We were now able to insert the Yankauer suction into this abscess cavity and aspirate the contents. The abscess cavity was now sharply debrided with both an 11 blade and a cutting surgical curette. Having come back to clean viable tissue in a 2. Nylon was placed inferiorly and brought out through our incision. The suture was then tied on itself and will be left in place as a drain. At this point the wound was inspected to ensure adequate hemostasis. This having mean down it was injected with 0.25% Marcaine to allow for adequate analgesia during the postoperative period. Sterile dressing was then applied. She was stable at the end of the procedure. Complications: None Drain(s): Other (#2 Nylon) Transferred to: Recovery Room Condition: Good
[2018-10-23] MEDS ORDERED: INSULIN -REGULAR HUMAN 50 UNIT/0.5 ML ML SQ SCH (16:30)
[2018-10-23] MEDS ORDERED: KETOROLAC 30 MG/ML INJ ONE (16:31)
[2018-10-23] MEDS ORDERED: ONDANSETRON 4 MG/2 ML VIAL ONE (16:39)
[2018-10-23] MEDS ORDERED: MEPERIDINE HCL 25 MG/0.5 ML ONE (16:41)
[2018-10-23] MEDS ORDERED: VANCOMYCIN/NS 1 gm 1 GM/250 ML BAG IVPB SCH (21:00)
[2018-10-24] MEDS ORDERED: VANCOMYCIN 1.5 GM in NA CHLORIDE 0.9% 500 ML IVPB SCH (02:00)
[2018-10-24] MEDS ORDERED: CEFEPIME/SWI 1gm 10 ML IV SCH (09:00)
[2018-10-24] MEDS ORDERED: CEFEPIME 1 GM/VIAL IV SCH (09:00)
== END 2018-10-23 19:15 | disposition home or self-care (01) | DRG 603 ==
LOC: ER 09:31 → ERHOLD 12:21 → 4TH 13:42
PROVIDERS: ADMIT Surgery; ATTEND Surgery
PROC: 0HDHXZZ Extraction of Right Upper Leg Skin, External Approach (ICD-10-PCS; 2018-10-23)
PROC: 0H9HXZZ Drainage of Right Upper Leg Skin, External Approach (ICD-10-PCS; principal; 2018-10-23 14:00)
DX: L02.415 Cutaneous abscess of right lower limb (principal); E11.9 Type 2 diabetes mellitus without complications; F17.210 Nicotine dependence, cigarettes, uncomplicated; Z79.4 Long term (current) use of insulin
CPT/HCPCS: 36415; 71045; 72193; 80048; 81003; 82962; 85025; 87040; 93005; 94760; 96365; 96367; 96375; 99284; J0692; J2001; J2175; J2250; J2405; J2704; J3010; J3370; J7030; Q9967

== ENCOUNTER 2019-03-03 15:15 | Emergency (ER) | payer SELFPAY ==
[2019-03-03] MEDS ORDERED: HYDROCODONE/APAP 10/325 TAB ONE (16:05)
[2019-03-03] MEDS ORDERED: INSULIN -REGULAR HUMAN 50 UNIT/0.5 ML ML ONE (16:05)
[2019-03-03] MEDS ORDERED: AMOX/K CLAV 875 MG TAB ONE (16:05)
[2019-03-03] MEDS ORDERED: KETOROLAC 30 MG/ML INJ ONE (16:05)
--- NOTE | 2019-03-03 16:56 | ER ---
Nurse's Notes [facility] Name: Chantelle Woodward Age: 48 yrs Sex: Female : 1970 Arrival Date: 03/03/2019 Time: 15:19 Bed 12 Private MD: Diagnosis: Dental caries Presentation: 03/03 15:27 Presenting complaint: Patient states: Pain in L lower jaw/tooth that began this ph morning, also reports nausea, denies vomiting, fever, chills. Transition of care: patient was not received from another setting of care. Onset of symptoms was March 03, 2019. Risk Assessment: Do you want to hurt yourself or someone else? Patient reports no desire to harm self or others. Initial Sepsis Screen: Does the patient meet any 2 criteria? No. Patient's initial sepsis screen is negative. Does the patient have a suspected source of infection? No. Patient's initial sepsis screen is negative. Care prior to arrival: Medication(s) given: Motrin, 600 mg, at 1300. 15:27 Method Of Arrival: Ambulatory ph 15:27 Acuity: TERRY 4 ph Triage Assessment: 16:50 EENT: Reports pain. 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 - Social history:: Smoking status: . - Ebola Screening: : Patient negative for fever greater than or equal to 101.5 degrees Fahrenheit, and additional compatible Ebola Virus Disease symptoms Patient denies exposure to infectious person Patient denies travel to an Ebola-affected area in the 21 days before illness onset No symptoms or risks identified at this time. Screenin:50 Abuse screen: Denies threats or abuse. Denies injuries from another. Nutritional iw screening: No deficits noted. Tuberculosis screening: No symptoms or risk factors identified. Fall Risk None identified. Assessment: 15:45 Reassessment: Pt requesting that blood sugar be checked, BGL 475,. states, " I didn't ph check my sugar or take my insulin this morning." ERP aware of findings. General: Appears in no apparent distress. uncomfortable, well groomed, Behavior is calm, cooperative, appropriate for age, Denies fever, feeling ill. Pain: Complains of pain in lower right first molar. Neuro: Level of Consciousness is awake, alert, obeys commands, Oriented to person, place, time, situation. Cardiovascular: Capillary refill < 3 seconds in bilateral fingers Patient's skin is warm and dry. Respiratory: Airway is patent Respiratory effort is even, unlabored. GI: No signs and/or symptoms were reported involving the gastrointestinal system. EENT: Dental caries noted in lower right first molar. Derm: Skin is intact, is healthy with good turgor, Skin is pink, warm \\T\\ dry. Vital Signs: 15:29 BP 141 / 97; Pulse 82; Resp 18; Temp 98.3; Pulse Ox 99% on R/A; Weight 104.33 kg; ph Height 5 ft. 7 in. (170.18 cm); Pain 8/10; 15:29 Body Mass Index 36.02 (104.33 kg, 170.18 cm) ph ED Course: 15:19 Patient arrived in ED. mr 15:25 Lillie Anthony[facility] la1 15:25 Deon Reeves MD is Attending Physician. la1 15:29 Triage completed. ph 15:30 Arm band placed on Patient placed in an exam room. ph 15:40 Esme Whitman, LEONARDO is Primary Nurse. iw 15:45 Patient has correct armband on for positive identification. iw 17:16 No provider procedures requiring assistance completed. Patient did not have IV access iw during this emergency room visit. Administered Medications: 15:50 Drug: Insulin Regular Human 10 units {Co-Signature: sg (Gilmer Dawson RN).} Route: Sub-Q; iw Site: right upper arm; 16:00 Drug: Augmentin 875 mg Route: PO; iw 16:02 Drug: TORadol 30 mg Route: IM; Site: left deltoid; iw 16:05 Drug: [place] 10 mg-325 mg 1 tabs Route: PO; iw Point of Care Testing: Blood Glucose: 15:45 Blood Glucose: 475 mg/dL; ph 16:55 Blood Glucose: 405 mg/dL; iw Ranges: Outcome: 16:56 Discharge ordered by . la1 17:16 Discharged to home ambulatory, with family. iw 17:16 Condition: good 17:16 Discharge instructions given to patient, family, Instructed on discharge instructions, follow up and referral plans. medication usage, Demonstrated understanding of instructions, follow-up care, medications, Prescriptions given X 3. 17:17 Patient left the ED. iw Signatures: Latisha Ivory Irene RN RN iw Anthony Moreira, ELECTROPLATER HELPER-C ELECTROPLATER HELPER-Cla1 Monica Zayas RN RN Gilmer Dawson RN
--- NOTE | 2019-03-03 16:57 | EDPHYS ---
Physician Documentation [facility] Name: Chantelle Woodward Age: 48 yrs Sex: Female : 1970 Arrival Date: 03/03/2019 Time: 15:19 Bed 12 Private MD: ED Physician Deon Reeves HPI: 03/03 15:42 This 48 yrs old Black Female presents to ER via Ambulatory with complaints of Toothache.la1 15:42 The patient presents with pain. The problem is located in the lower right first molar. la1 Onset: The symptoms/episode began/occurred this morning. Duration: The symptoms are continuous. Modifying factors: The symptoms are alleviated by nothing, the symptoms are aggravated by nothing. Associated signs and symptoms: Pertinent positives: pain, Pertinent negatives: chills, dysphagia, fever, inability to eat. Severity of symptoms: At their worst the symptoms were mild. The patient has experienced similar episodes in the past, several times. The patient has not recently seen a physician. Pt with poor dentition and multiple visits for dental infections. Able to tolerate PO, pain began today. 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 - Social history:: Smoking status: . - Ebola Screening: : Patient negative for fever greater than or equal to 101.5 degrees Fahrenheit, and additional compatible Ebola Virus Disease symptoms Patient denies exposure to infectious person Patient denies travel to an Ebola-affected area in the 21 days before illness onset No symptoms or risks identified at this time. ROS: 15:44 Constitutional: Negative for fever, chills, and weight loss, Eyes: Negative for injury, la1 pain, redness, and discharge, ENT: + for dental pain Neck: Negative for injury, pain, and swelling, Cardiovascular: Negative for chest pain, palpitations, and edema, Respiratory: Negative for shortness of breath, cough, wheezing, and pleuritic chest pain, Abdomen/GI: Negative for abdominal pain, nausea, vomiting, diarrhea, and constipation, Back: Negative for injury and pain, : Negative for injury, bleeding, discharge, and swelling, MS/Extremity: Negative for injury and deformity, Neuro: Negative for headache, weakness, numbness, tingling, and seizure. Exam: 16:22 Constitutional: This is a well developed, well nourished patient who is awake, alert, la1 and in no acute distress. Head/Face: Normocephalic, atraumatic. Eyes: Pupils equal round and reactive to light, extra-ocular motions intact. 16:22 Cardiovascular: Regular rate and rhythm with a normal S1 and S2. No gallops, murmurs, or rubs. Normal PMI, no JVD. No pulse deficits. Respiratory: Lungs have equal breath sounds bilaterally, clear to auscultationNo rales, rhonchi or wheezes noted. No increased work of breathing, no retractions or nasal flaring. Abdomen/GI: Soft, non-tender, with normal bowel sounds. No distension No guarding or rebound. No evidence of tenderness throughout. MS/ Extremity: Pulses equal, no cyanosis. Neurovascular intact. Full, normal range of motion. 16:22 ENT: Dental exam: normal, abscess, that is mild, specifically in the lower right first molar, dental caries, that is moderate, diffusely, pain, that is moderate, specifically in the lower right first molar, no sublingual edema, no trismus, no submandibular swelling or redness present. Vital Signs: 15:29 BP 141 / 97; Pulse 82; Resp 18; Temp 98.3; Pulse Ox 99% on R/A; Weight 104.33 kg; ph Height 5 ft. 7 in. (170.18 cm); Pain 8/10; 15:29 Body Mass Index 36.02 (104.33 kg, 170.18 cm) ph MDM: 15:42 Patient medically screened. la1 16:53 Data reviewed: vital signs, nurses notes, lab test result(s), I have discussed the la1 patient's presentation/case with the attending Emergency Department Physician; and as a result, I will discharge patient. Data interpreted: Pulse oximetry: on room air is 99 %. Interpretation: normal. Counseling: I had a detailed discussion with the patient and/or guardian regarding: the historical points, exam findings, and any diagnostic results supporting the discharge/admit diagnosis, the presence of at least one elevated blood pressure reading (>120/80) during this emergency department visit, the need for outpatient follow up, a dentist, given info for dental school urgent care. Medication response: norco/toradol. Response to treatment: the patient's symptoms have mildly improved after treatment. Special discussion: Based on the presenting symptoms and work-up in the emergency department, I discussed in detail the need to arrange with the PCP or specialist an outpatient procedure, dental extraction. ED course: Pt without trismus, submandibular swelling/redness, no sublingual edema. 03/03 15:55 Order name: Glucose, Ancillary Testing EDMS 03/03 17:06 Order name: Glucose, Ancillary Testing EDMS Administered Medications: 15:50 Drug: Insulin Regular Human 10 units {Co-Signature: rayo (Gilmer Dawson RN).} Route: Sub-Q; iw Site: right upper arm; 16:00 Drug: Augmentin 875 mg Route: PO; iw 16:02 Drug: TORadol 30 mg Route: IM; Site: left deltoid; iw 16:05 Drug: [place] 10 mg-325 mg 1 tabs Route: PO; iw Point of Care Testing: Blood Glucose: 15:45 Blood Glucose: 475 mg/dL; ph 16:55 Blood Glucose: 405 mg/dL; iw Ranges: Critical Glucose Levels:Adult <50 mg/dl or >400 mg/dl <40 mg/dl or >180 mg/dl Disposition: 03/04 07:24 Co-signature as Attending Physician, Deon Reeves MD I agree with the assessment and kdr plan of care. Disposition: 03/03/19 16:56 Discharged to Home. Impression: Dental caries. - Condition is Stable. - Discharge Instructions: Dental Abscess, Dental Caries, Adult. - Prescriptions for Augmentin 875- 125 mg Oral Tablet - take 1 tablet by ORAL route every 12 hours for 10 days; 20 tablet. Tylenol- Codeine #3 300-30 mg Oral Tablet - take 2 tablets by ORAL route every 6 hours As needed; 20 tablet. - Medication Reconciliation Form, Thank You Letter, Antibiotic Education form. - Follow up: Private Physician; When: 5 - 6 days; Reason: Recheck today's complaints, Re-evaluation by your physician. Follow up: Emergency Department; When: As needed; Reason: Worsening of condition, Unable to open mouth, unable to eat or drink, increased swelling . - Problem is new. - Symptoms are unchanged. Signatures: Deon Reeves MD MD [facility] Esem Whitman RN RN iw Anthony Moreira, DEMO COORDINATOR-C DEMO COORDINATOR-Cla1 Monica Zayas RN RN Gilmer Dawson RN Corrections: (The following items were deleted from the chart) 03/03 17:17 16:56 03/03/2019 16:56 Discharged to Home. Impression: Dental caries. Condition is iw Stable. Forms are Medication Reconciliation Form, Thank You Letter, Antibiotic Education, Prescription Opioid Use. Follow up: Private Physician; When: 5 - 6 days; Reason: Recheck today's complaints, Re-evaluation by your physician. Follow up: Emergency Department; When: As needed; Reason: Worsening of condition, Unable to open mouth, unable to eat or drink, increased swelling . Problem is new. Symptoms are unchanged. la1
[2019-03-03 19:16] VITALS: BP 141/97; TEMP 98.3; O2SAT 99
== END 2019-03-03 17:17 | disposition home or self-care (01) ==
LOC: ER 15:15
DX: K02.9 Dental caries, unspecified (principal); E11.9 Type 2 diabetes mellitus without complications; Z79.4 Long term (current) use of insulin
CPT/HCPCS: 82947; 96372; 99283

== ENCOUNTER 2019-08-09 06:16 | Emergency (ER) | payer SELFPAY ==
[2019-08-09] MEDS ORDERED: LIDOCAINE 1% 20 ML MDV ONE (07:01)
--- NOTE | 2019-08-09 07:59 | EDPHYS ---
Physician Documentation [facility] Name: Chantelle Woodward Age: 48 yrs Sex: Female : 1970 Arrival Date: 08/09/2019 Time: 06:18 Bed 7 Private MD: ED Physician Alli Smallwood HPI: 08/08 06:56 This 48 yrs old Black Female presents to ER via Ambulatory with complaints of Abscess. jr8 06:56 The patient presents with an abscess of the buttocks and pelvis. Description: The jr8 affected area is moderate sized, well demarcated, erythematous, swollen, warm. Onset: The symptoms/episode began/occurred gradually, 2 day(s) ago. Possible cause(s): unknown. Associated signs and symptoms: The patient has no apparent associated signs or symptoms. Modifying factors: the symptoms are alleviated by nothing, the symptoms are aggravated by pressure, sitting, squeezing the lesion and expressing the contents, touching. Severity of symptoms: At their worst the symptoms were mild, in the emergency department the symptoms are unchanged. The patient has experienced a previous episode. The patient has not recently seen a physician. Patient stated that she started out with swollen area on buttock. Now has one to left inguinal region. Has had this once before and needed to go to OR for I\T\D because she waited so long . 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 - Social history:: Smoking status: Patient reports the use of cigarette tobacco products, smokes one-half pack cigarettes per day. ROS: 06:56 Eyes: Negative for injury, pain, redness, and discharge, ENT: Negative for injury, jr8 pain, and discharge, Neck: Negative for injury, pain, and swelling, Cardiovascular: Negative for chest pain, palpitations, and edema, Respiratory: Negative for shortness of breath, cough, wheezing, and pleuritic chest pain, Abdomen/GI: Negative for abdominal pain, nausea, vomiting, diarrhea, and constipation, Back: Negative for injury and pain, MS/Extremity: Negative for injury and deformity, Neuro: Negative for headache, weakness, numbness, tingling, and seizure. 06:56 Skin: Positive for abscess. Exam: 06:56 Constitutional: This is a well developed, well nourished patient who is awake, alert, jr8 and in no acute distress. Cardiovascular: Regular rate and rhythm with a normal S1 and S2. No gallops, murmurs, or rubs. Normal PMI, no JVD. No pulse deficits. Respiratory: Lungs have equal breath sounds bilaterally, clear to auscultation and percussion. No rales, rhonchi or wheezes noted. No increased work of breathing, no retractions or nasal flaring. MS/ Extremity: Pulses equal, no cyanosis. Neurovascular intact. Full, normal range of motion. Neuro: Awake and alert, GCS 15, oriented to person, place, time, and situation. Cranial nerves II-XII grossly intact. Motor strength 5/5 in all extremities. Sensory grossly intact. Cerebellar exam normal. Normal gait. 06:56 Skin: Patient has 3.5 cm swollen region to left buttock at lower gluteal cleft with redness, induration, and fluctuance. Small 2 cm region in left inguinal area that is slightly swollen and with induration and mild erythema only. Vital Signs: 06:30 BP 138 / 90; Pulse 111; Resp 18; Temp 99.1(O); Pulse Ox 100% on R/A; Weight 99.79 kg lp1 (R); Height 5 ft. 7 in. (170.18 cm); Pain 8/10; 06:30 Body Mass Index 34.46 (99.79 kg, 170.18 cm) lp1 Procedures: 07:57 I \T\ D: Incision and drainage was performed for an abscess of the right buttocks Prepped jr8 with Betadine, Anesthetized with 7 ml's 1% Lidocaine. Incised with #11 blade. Drained moderate amount purulent fluid. serosanguinous fluid. bloody fluid. Loculations removed. Abscess cavity explored. Packed with iodoform gauze, Dressing: sterile 4x4 gauze, the patient tolerated the procedure well. MDM: 06:32 Patient medically screened. jr8 07:57 Data reviewed: vital signs, nurses notes, and as a result, I will discharge patient. jr8 Data interpreted: Pulse oximetry: on room air is 100 %. Interpretation: normal. Counseling: I had a detailed discussion with the patient and/or guardian regarding: the historical points, exam findings, and any diagnostic results supporting the discharge/admit diagnosis, the need for outpatient follow up, a general surgeon, to return to the emergency department if symptoms worsen or persist or if there are any questions or concerns that arise at home. 08/08 06:48 Order name: I\T\D Setup; Complete Time: 06:51 jr8 Administered Medications: 08:00 Drug: Lidocaine (1 %) 1 vials {Note: administered to affected area by ASHTYN Berry.} ss Volume: 20 ml; Route: Infiltration; Disposition: 08/09 03:19 Co-signature as Attending Physician, Alli Smallwood MD. [email or web address] Disposition: 08/09/19 07:58 Discharged to Home. Impression: Cutaneous abscess of buttock, Cutaneous abscess of groin. - Condition is Stable. - Discharge Instructions: Skin Abscess, Incision and Drainage. - Prescriptions for Bactrim DS 800- 160 mg Oral Tablet - take 1 tablet by ORAL route every 12 hours for 10 days; 20 tablet. - Medication Reconciliation Form, Thank You Letter, Antibiotic Education, Prescription Opioid Use form. - Follow up: Denny Welch MD; When: 48 Hours; Reason: Wound Recheck, Recheck today's complaints, Continuance of care, Re-evaluation by your physician. - Problem is new. - Symptoms have improved. Signatures: Megan Mcneill RN RN Rahel Ramirez RN RN 1 Lawrence Lindsay PA PA jr8 Alli Smallwood MD MD 7 Corrections: (The following items were deleted from the chart) 08/08 08:55 07:58 08/09/2019 07:58 Discharged to Home. Impression: Cutaneous abscess of buttock; ss Cutaneous abscess of groin. Condition is Stable. Forms are Medication Reconciliation Form, Thank You Letter, Antibiotic Education, Prescription Opioid Use. Follow up: Denny Welch; When: 48 Hours; Reason: Wound Recheck, Recheck today's complaints, Continuance of care, Re-evaluation by your physician. Problem is new. Symptoms have improved. jr8
--- NOTE | 2019-08-09 07:59 | ER ---
Nurse's Notes [facility] Name: Chantelle Woodward Age: 48 yrs Sex: Female : 1970 Arrival Date: 08/09/2019 Time: 06:18 Bed 7 Private MD: Diagnosis: Cutaneous abscess of buttock;Cutaneous abscess of groin Presentation: 08/08 06:30 Chief complaint: Patient states: Abscess to left buttock x 2 days; states abscess to lp1 left groin that she noticed today; denies any fever. Coronavirus screen: Proceed with normal triage. Ebola Screen: No symptoms or risks identified at this time. Initial Sepsis Screen: Does the patient meet any 2 criteria? No. Patient's initial sepsis screen is negative. Does the patient have a suspected source of infection? No. Patient's initial sepsis screen is negative. Risk Assessment: Do you want to hurt yourself or someone else? Patient reports no desire to harm self or others. Onset of symptoms was August 09, 2019. 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 - Social history:: Smoking status: Patient reports the use of cigarette tobacco products, smokes one-half pack cigarettes per day. Screenin:32 Abuse screen: Denies threats or abuse. Denies injuries from another. Nutritional lp1 screening: No deficits noted. Tuberculosis screening: No symptoms or risk factors identified. Fall Risk None identified. Assessment: 07:45 General: Appears in no apparent distress. uncomfortable, Behavior is calm, cooperative, jl7 appropriate for age. Pain: Complains of pain in gluteal cleft Pain currently is 8 out of 10 on a pain scale. Neuro: Level of Consciousness is awake, alert, obeys commands, Oriented to person, place, time, situation. Cardiovascular: Patient's skin is warm and dry. Respiratory: Airway is patent Respiratory effort is even, unlabored, Respiratory pattern is regular, symmetrical. Derm: Skin is dry, Skin is normal, Skin temperature is warm Abscess located on buttocks is half dollar sized, has no drainage, is red, is raised. Vital Signs: 06:30 BP 138 / 90; Pulse 111; Resp 18; Temp 99.1(O); Pulse Ox 100% on R/A; Weight 99.79 kg lp1 (R); Height 5 ft. 7 in. (170.18 cm); Pain 8/10; 06:30 Body Mass Index 34.46 (99.79 kg, 170.18 cm) lp1 ED Course: 06:18 Patient arrived in ED. cl3 06:29 Lawrence Lindsay PA is PHCP. jr8 06:29 Alli Smallwood MD is Attending Physician. jr8 06:31 Triage completed. lp1 06:31 Arm band placed on. lp1 07:44 Phong Cummins RN is Primary Nurse. jl7 07:45 Patient has correct armband on for positive identification. Placed in gown. Bed in low jl7 position. Call light in reach. Side rails up X 1. 07:45 Assist provider with I \T\ D: of an abscess on left buttocks Set up I\T\D tray. Performed jl 7 by Lawrence CHAMORRO Wound packed. iodoform gauze, Patient tolerated well. 07:58 Denny Welch MD is Referral Physician. jr8 08:53 Patient did not have IV access during this emergency room visit. Dressings: 4X4s X 1; ss buttocks disposable underwear and feminine pad. Administered Medications: 08:00 Drug: Lidocaine (1 %) 1 vials {Note: administered to affected area by ASHTYN Berry.} ss Volume: 20 ml; Route: Infiltration; Outcome: 07:58 Discharge ordered by . jr8 08:53 Discharged to home ambulatory. ss 08:53 Condition: good 08:53 Discharge instructions given to patient, Instructed on discharge instructions, follow up and referral plans. medication usage, Demonstrated understanding of instructions, follow-up care, wound care, Prescriptions given X 1. 08:55 Patient left the ED. ss Signatures: Megan Mcneill RN RN Rahel Ramirez RN RN lp1 Lawrence Lindsay PA PA jr8 Phong Cummins RN RN jl7 Beverley Gonzáles cl3
[2019-08-09 09:00] VITALS: BP 138/90; TEMP 99.1; O2SAT 100
== END 2019-08-09 08:55 | disposition home or self-care (01) ==
LOC: ER 06:16
PROC: 0J990ZZ Drainage of Buttock Subcutaneous Tissue and Fascia, Open Approach (ICD-10-PCS; principal; 2019-08-09)
DX: L02.31 Cutaneous abscess of buttock (principal); L02.214 Cutaneous abscess of groin; F17.210 Nicotine dependence, cigarettes, uncomplicated; E11.9 Type 2 diabetes mellitus without complications; Z79.4 Long term (current) use of insulin
CPT/HCPCS: 99283

== ENCOUNTER 2019-09-04 10:14 | Emergency (ER) | payer SELFPAY ==
--- NOTE | 2019-09-04 11:07 | EDPHYS ---
Physician Documentation [facility] Name: Chantelle Woodward Age: 48 yrs Sex: Female : 1970 Arrival Date: 09/04/2019 Time: 10:15 Bed 14 Private MD: ED Physician Deon Reeves HPI: 09/03 11:11 This 48 yrs old Black Female presents to ER via Ambulatory with complaints of Toothache.snw 11:11 The patient presents with pain, redness. The problem is located in the lower right snw first molar (#30) and upper right first molar (#3). Onset: The symptoms/episode began/occurred suddenly, 2 day(s) ago, and became persistent. Duration: The symptoms are continuous. Associated signs and symptoms: The patient has no apparent associated signs or symptoms. Severity of symptoms: At their worst the symptoms were moderate, in the emergency department the symptoms are unchanged. It is unknown whether or not the patient has had similar symptoms in the past. It is unknown whether or not the patient has recently seen a physician. 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 - Social history:: Smoking status: . ROS: 11:10 Constitutional: Negative for fever, chills, and weight loss, Eyes: Negative for injury, snw pain, redness, and discharge, Neck: Negative for injury, pain, and swelling, Cardiovascular: Negative for chest pain, palpitations, and edema, Respiratory: Negative for shortness of breath, cough, wheezing, and pleuritic chest pain, Abdomen/GI: Negative for abdominal pain, nausea, vomiting, diarrhea, and constipation, Back: Negative for injury and pain, : Negative for injury, bleeding, discharge, and swelling, MS/Extremity: Negative for injury and deformity, Skin: Negative for injury, rash, and discoloration, Neuro: Negative for headache, weakness, numbness, tingling, and seizure, Psych: Negative for depression, anxiety, suicide ideation, homicidal ideation, and hallucinations. 11:10 ENT: Positive for dental pain, states with pain her BP and her FSBS both increases. Exam: 11:08 Constitutional: This is a well developed, well nourished patient who is awake, alert, snw and in no acute distress. 11:08 Eyes: Pupils equal round and reactive to light, extra-ocular motions intact. Lids and lashes normal. Conjunctiva and sclera are non-icteric and not injected. Cornea within normal limits. Periorbital areas with no swelling, redness, or edema. Neck: Trachea midline, no thyromegaly or masses palpated, and no cervical lymphadenopathy. Supple, full range of motion without nuchal rigidity, or vertebral point tenderness. No Meningismus. Chest/axilla: Normal chest wall appearance and motion. Nontender with no deformity. No lesions are appreciated. Cardiovascular: Regular rate and rhythm with a normal S1 and S2. No gallops, murmurs, or rubs. Normal PMI, no JVD. No pulse deficits. Abdomen/GI: Soft, non-tender, with normal bowel sounds. No distension or tympany. No guarding or rebound. No evidence of tenderness throughout. Back: No spinal tenderness. No costovertebral tenderness. Full range of motion. Skin: Warm, dry with normal turgor. Normal color with no rashes, no lesions, and no evidence of cellulitis. MS/ Extremity: Pulses equal, no cyanosis. Neurovascular intact. Full, normal range of motion. Neuro: Awake and alert, GCS 15, oriented to person, place, time, and situation. Cranial nerves II-XII grossly intact. Motor strength 5/5 in all extremities. Sensory grossly intact. Cerebellar exam normal. Normal gait. Psych: Awake, alert, with orientation to person, place and time. Behavior, mood, and affect are within normal limits. 11:08 Head/face: Noted is mild edema below lashes. 11:08 ENT: External ear(s): are unremarkable, Nose: is normal, Posterior pharynx: is normal, Dental exam: dental caries, that is moderate, specifically in the upper right first molar (#3) and lower right first molar (#30). 11:08 Respiratory: the patient does not display signs of respiratory distress, Respirations: normal, Breath sounds: bronchial sounds, that are mild. Vital Signs: 10:25 BP 155 / 111; Pulse 94; Resp 18; Temp 98.0(TE); Pulse Ox 99% on R/A; Weight 99.79 kg tw2 (R); Height 5 ft. 7 in. (170.18 cm); Pain 10/10; 10:25 Body Mass Index 34.46 (99.79 kg, 170.18 cm) tw2 MDM: 10:54 Patient medically screened. snw 11:10 Data reviewed: vital signs, nurses notes. Data interpreted: Pulse oximetry: on room air snw is 99 %. Interpretation:. Counseling: I had a detailed discussion with the patient and/or guardian regarding: the historical points, exam findings, and any diagnostic results supporting the discharge/admit diagnosis, the need for outpatient follow up, to return to the emergency department if symptoms worsen or persist or if there are any questions or concerns that arise at home. Special discussion: Based on the history and exam findings, there is no indication for further emergent testing or inpatient evaluation. I discussed with the patient/guardian the need to see a dentist for further evaluation of the symptoms. 11:12 Counseling: I had a detailed discussion with the patient and/or guardian regarding: the snw presence of at least one elevated blood pressure reading (>120/80) during this emergency department visit, smoking cessation. Admission orders: after a detailed discussion of the patient's condition and case, the admit orders are written by me. Special discussion: I have referred the patient to see his PCP for further evaluation of high blood pressure. Based on the history and exam findings, there is no indication for further emergent testing or inpatient evaluation. I discussed with the patient/guardian the need to see the primary care provider for further evaluation of the symptoms. Administered Medications: 11:14 Drug: Aspirin 325 mg Route: PO; iw 11:30 Follow up: Response: No adverse reaction iw 11:14 Drug: Sharon 5 mg-325 mg 1 tabs Route: PO; iw 11:21 Follow up: Response: No adverse reaction iw 11:15 Drug: Bicillin L-A 1.2 million units Route: IM; Site: right ventrogluteal; iw 12:25 Follow up: Response: No adverse reaction iw Disposition: 09/04/19 11:06 Discharged to Home. Impression: Dental caries. - Condition is Stable. - Discharge Instructions: Dental Caries, Adult, Dental Pain, Hypertension, Diet and Dental Disease, Cryotherapy, Preventive Dental Care, Adult. - Prescriptions for Ultram 50 mg Oral Tablet - take 1 tablet by ORAL route every 6 hours As needed; 12 tablet. - Medication Reconciliation Form, Thank You Letter, Antibiotic Education, Prescription Opioid Use form. - Follow up: Emergency Department; When: As needed; Reason: Worsening of condition. Follow up: Private Physician; When: Tomorrow; Reason: Recheck today's complaints, Continuance of care, Re-evaluation by your physician. Addendum: 09/05/2019 13:26 Co-signature as Attending Physician, Deon Reeves MD I agree with the assessment and k dr plan of care. Signatures: Deon Reeves MD MD [facility] Domonique Sotelo, BRAKE LINING FINISHER ASBESTOS-C BRAKE LINING FINISHER [employer]-Csnw Esme Whitman, RN RN Alesha Centeno RN RN 2 Lacie Salomon RN RN Corrections: (The following items were deleted from the chart) 09/03 11:37 11:06 09/04/2019 11:06 Discharged to Home. Impression: Dental caries. Condition is ah Stable. Forms are Medication Reconciliation Form, Thank You Letter, Antibiotic Education, Prescription Opioid Use. Follow up: Emergency Department; When: As needed; Reason: Worsening of condition. Follow up: Private Physician; When: Tomorrow; Reason: Recheck today's complaints, Continuance of care, Re-evaluation by your physician. snw
--- NOTE | 2019-09-04 11:07 | ER ---
Nurse's Notes [facility] Name: Chantelle Woodward Age: 48 yrs Sex: Female : 1970 Arrival Date: 09/04/2019 Time: 10:15 Bed 14 Private MD: Diagnosis: Dental caries Presentation: 09/03 10:25 Chief complaint: Patient states: i have a tooth abscess on upper RIGHT, it was hurting tw2 yesterday, but when i got up this morning it was swollen and now the bottom is hurting. Coronavirus screen: Patient denies a cough. Patient denies shortness of breath or difficulty breathing. Patient denies measured and/or subjective temperature greater than 100.4F prior to today's visit. Patient denies travel on a cruise ship or to a country the [facility] currently lists as an affected area. Patient denies contact with known and/or suspected case of COVID-19. Ebola Screen: Patient denies travel to an Ebola-affected area in the 21 days before illness onset. Initial Sepsis Screen: Does the patient meet any 2 criteria? No. Patient's initial sepsis screen is negative. Does the patient have a suspected source of infection? No. Patient's initial sepsis screen is negative. Risk Assessment: Do you want to hurt yourself or someone else? Patient reports no desire to harm self or others. Onset of symptoms was September 04, 2019. 10:25 Method Of Arrival: Ambulatory tw2 10:25 Acuity: TERRY 4 tw2 Triage Assessment: 10:26 General: Appears in no apparent distress. uncomfortable, Behavior is calm, cooperative, tw2 appropriate for age. Pain: Complains of pain in mouth. EENT: Reports pain in gums and right buccal mucosa. 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 - Social history:: Smoking status: . Screenin:05 Abuse screen: Denies threats or abuse. Nutritional screening: No deficits noted. iw Tuberculosis screening: No symptoms or risk factors identified. Fall Risk None identified. Assessment: 11:19 General: Appears uncomfortable, Behavior is calm, cooperative. Pain: Complains of pain iw in upper right first molar and lower right first molar Pain at worst was 10 out of 10 on a pain scale. Quality of pain is described as sharp, throbbing, Pain began 1 day ago. Alleviated by nothing. Neuro: Level of Consciousness is awake, alert, Oriented to person, place, time, situation. Cardiovascular: Capillary refill < 3 seconds Patient's skin is warm and dry. Respiratory: Airway is patent Respiratory effort is even, unlabored. Derm: Skin is intact, is healthy with good turgor. Vital Signs: 10:25 BP 155 / 111; Pulse 94; Resp 18; Temp 98.0(TE); Pulse Ox 99% on R/A; Weight 99.79 kg tw2 (R); Height 5 ft. 7 in. (170.18 cm); Pain 10/10; 10:25 Body Mass Index 34.46 (99.79 kg, 170.18 cm) tw2 ED Course: 10:15 Patient arrived in ED. as 10:26 Triage completed. tw2 10:26 Arm band placed on. tw2 10:33 Domonique Sotelo FNP-C is [facility]. snw 10:33 Deon Reeves MD is Attending Physician. snw 11:03 Esme Whitman, LEONARDO is Primary Nurse. iw 11:23 Patient has correct armband on for positive identification. Bed in low position. Call light in reach. Side rails up X 1. 11:23 No provider procedures requiring assistance completed. Patient did not have IV access ah during this emergency room visit. Administered Medications: 11:14 Drug: Aspirin 325 mg Route: PO; iw 11:30 Follow up: Response: No adverse reaction iw 11:14 Drug: [place] 5 mg-325 mg 1 tabs Route: PO; iw 11:21 Follow up: Response: No adverse reaction iw 11:15 Drug: Bicillin L-A 1.2 million units Route: IM; Site: right ventrogluteal; iw 12:25 Follow up: Response: No adverse reaction iw Outcome: 11:06 Discharge ordered by . snw 11:21 Discharged to home ambulatory. iw 11:21 Condition: good 11:21 Discharge instructions given to patient, Instructed on discharge instructions, follow up and referral plans. medication usage, Demonstrated understanding of Prescriptions given X 1. 11:37 Patient left the ED. Signatures: Domonique Sotelo, BLUEPRINTING AND PHOTOCOPY SUPERVISOR-C BLUEPRINTING AND PHOTOCOPY SUPERVISOR-Csnw Linda Hawk Irene, RN RN iw Alesha Centeno RN RN 2 Lacie Salomon RN LEONARDO
[2019-09-04] MEDS ORDERED: ASPIRIN 325 MG TAB ONE (11:17)
[2019-09-04] MEDS ORDERED: HYDROCODONE/APAP 5/325 MG TAB ONE (11:17)
[2019-09-04] MEDS ORDERED: PEN G BENZ LA 1.2MU/2ML SYRINGE IM ONE (11:18)
[2019-09-04 11:42] VITALS: BP 155/111; TEMP 98; O2SAT 99
== END 2019-09-04 11:37 | disposition home or self-care (01) ==
LOC: ER 10:14
DX: K02.9 Dental caries, unspecified (principal); E11.9 Type 2 diabetes mellitus without complications; Z79.4 Long term (current) use of insulin
CPT/HCPCS: 96372; 99283; J0561

== ENCOUNTER 2020-04-24 06:00 | Emergency (ER) | payer SELFPAY ==
--- NOTE | 2020-04-24 06:18 | ER ---
Nurse's Notes [facility] Name: Chantelle Woodward Age: 49 yrs Sex: Female : 1970 Arrival Date: 04/24/2020 Time: 06:05 Bed 7 Private MD: Diagnosis: Dental caries Presentation: 04/24 06:14 Chief complaint: Patient states: lower tooth abscess for 1 day, denies fever. em Coronavirus screen: Client denies travel out of the [place] in the last 14 days. Ebola Screen: Patient negative for fever greater than or equal to 101.5 degrees Fahrenheit, and additional compatible Ebola Virus Disease symptoms Patient denies exposure to infectious person. Patient denies travel to an Ebola-affected area in the 21 days before illness onset. No symptoms or risks identified at this time. Initial Sepsis Screen: Does the patient meet any 2 criteria? HR > 90 bpm. No. Patient's initial sepsis screen is negative. Does the patient have a suspected source of infection? Yes: Skin breakdown/wound. Risk Assessment: Do you want to hurt yourself or someone else? Patient reports no desire to harm self or others. Onset of symptoms was April 23, 2020. 06:14 Method Of Arrival: Ambulatory em 06:14 Acuity: TERRY 5 em Historical: - Allergies: 06:17 No Known Allergies; em - PMHx: 06:17 Diabetes - IDDM; em - PSHx: 06:17 eye surgery; Thyroidectomy; Hysterectomy; em - Immunization history:: Adult Immunizations up to date. - Social history:: Smoking status: Patient denies any tobacco usage or history of. - Family history:: not pertinent. - Hospitalizations: : No recent hospitalization is reported. Screenin:15 Abuse screen: Denies threats or abuse. Denies injuries from another. Nutritional rr5 screening: No deficits noted. Tuberculosis screening: No symptoms or risk factors identified. Fall Risk None identified. Total Cerna Fall Scale indicates No Risk (0-24 pts). Assessment: 06:15 General: Appears in no apparent distress. uncomfortable, Behavior is calm, cooperative, rr5 appropriate for age. 06:15 Pain: Complains of pain in lower right first molar Pain currently is 6 out of 10 on a rr5 pain scale. Quality of pain is described as aching, Pain began gradually, Is intermittent. Neuro: Level of Consciousness is awake, alert, obeys commands, Oriented to person, place, time, situation. Cardiovascular: Capillary refill < 3 seconds Patient's skin is warm and dry. Respiratory: Airway is patent Respiratory effort is even, unlabored, Respiratory pattern is regular, symmetrical. GI: No signs and/or symptoms were reported involving the gastrointestinal system. : No signs and/or symptoms were reported regarding the genitourinary system. EENT: Dental caries noted in lower right first molar (#30). Derm: Skin is intact, is healthy with good turgor, Skin temperature is warm. Musculoskeletal: Capillary refill < 3 seconds. 06:25 Reassessment: Patient appears in no apparent distress at this time. Patient is alert, rr5 oriented x 3, equal unlabored respirations, skin warm/dry/pink. discharge instruction given and explained without complaints made. Vital Signs: 06:14 BP 156 / 105; Pulse 109; Resp 18; Temp 98.5(O); Pulse Ox 100% on R/A; Weight 86.18 kg; em Height 5 ft. 7 in. (170.18 cm); Pain 6/10; 06:25 BP 141 / 75; Pulse 99; Resp 19; Pulse Ox 99% ; rr5 06:14 Body Mass Index 29.76 (86.18 kg, 170.18 cm) em ED Course: 06:05 Patient arrived in ED. bp1 06:08 Tru Hughes MD is Attending Physician. rn 06:15 Patient has correct armband on for positive identification. Bed in low position. rr5 06:16 Triage completed. em 06:17 Arm band placed on. em 06:23 Vern Daily RN is Primary Nurse. rr5 06:26 No provider procedures requiring assistance completed. Patient did not have IV access rr5 during this emergency room visit. Administered Medications: No medications were administered Outcome: 06:18 Discharge ordered by . rn 06:26 Discharged to home ambulatory, with family. rr5 06:26 Condition: stable 06:26 Discharge instructions given to patient, Instructed on discharge instructions, follow up and referral plans. medication usage, Demonstrated understanding of instructions, follow-up care, medications, Prescriptions given X 2. 06:27 Patient left the ED. rr5 Signatures: Evelio Thomas RN RN HughesTru MD MD rn Roque, Raymond, RN RN rr5 Vee Sellers
--- NOTE | 2020-04-24 06:18 | EDPHYS ---
Physician Documentation [facility] Name: Chantelle Woodward Age: 49 yrs Sex: Female : 1970 Arrival Date: 04/24/2020 Time: 06:05 Bed 7 Private MD: ED Physician Tru Hughes HPI: 04/24 06:13 This 49 yrs old Black Female presents to ER via Unassigned with complaints of dental rn Abscess. 06:14 The patient presents with pain. The problem is located in the right lower tooth. Onset: rn The symptoms/episode began/occurred yesterday. Duration: The symptoms are continuous. Modifying factors: The symptoms are alleviated by nothing, the symptoms are aggravated by chewing, talking. Associated signs and symptoms: Pertinent positives: pain, Pertinent negatives: chills, dysphagia, fever, inability to eat. Severity of symptoms: At their worst the symptoms were moderate, in the emergency department the symptoms are unchanged. The patient has experienced similar episodes in the past. Reports feels like is getting another dental abscess, has had multiple in past, has had several teeth pulled. No fever. NO trauma. Began yesterday. . Historical: - Allergies: 06:17 No Known Allergies; em - PMHx: 06:17 Diabetes - IDDM; em - PSHx: 06:17 eye surgery; Thyroidectomy; Hysterectomy; em - Immunization history:: Adult Immunizations up to date. - Social history:: Smoking status: Patient denies any tobacco usage or history of. - Family history:: not pertinent. - Hospitalizations: : No recent hospitalization is reported. ROS: 06:14 Constitutional: Negative for fever, chills, and weight loss, ENT: + dental pain Neck: rn Negative for injury, pain, and swelling. Exam: 06:14 Constitutional: This is a well developed, well nourished patient who is awake, alert, rn and in no acute distress. Ambulatory to room. ENT: + poor dentition, right lower teeth black and several missing. + tenderness with percussion to top of tooth, no gingival swelling, no drainage. Vital Signs: 06:14 BP 156 / 105; Pulse 109; Resp 18; Temp 98.5(O); Pulse Ox 100% on R/A; Weight 86.18 kg; em Height 5 ft. 7 in. (170.18 cm); Pain 6/10; 06:25 BP 141 / 75; Pulse 99; Resp 19; Pulse Ox 99% ; rr5 06:14 Body Mass Index 29.76 (86.18 kg, 170.18 cm) em [facility]: 06:08 Patient medically screened. rn 06:14 Differential diagnosis: dental caries, dental abscess. Data reviewed: vital signs, rn nurses notes, and as a result, I will discharge patient. Counseling: I had a detailed discussion with the patient and/or guardian regarding: the historical points, exam findings, and any diagnostic results supporting the discharge/admit diagnosis, the need for outpatient follow up, to return to the emergency department if symptoms worsen or persist or if there are any questions or concerns that arise at home. Special discussion: I discussed with the patient/guardian in detail that at this point there is no indication for admission to the hospital. It is understood, however, that if the symptoms persist or worsen the patient needs to return immediately for re-evaluation. Based on the history and exam findings, there is no indication for further emergent testing or inpatient evaluation. I discussed with the patient/guardian the need to see a dentist for further evaluation of the symptoms. Administered Medications: No medications were administered Disposition: 04/24/20 06:18 Discharged to Home. Impression: Dental caries. - Condition is Stable. - Discharge Instructions: Dental Pain. - Prescriptions for Clindamycin HCl 300 mg Oral Capsule - take 1 capsule by ORAL route every 6 hours for 10 days; 40 capsule. Ultram 50 mg Oral Tablet - take 1 tablet by ORAL route every 6 hours As needed; 12 tablet. - Medication Reconciliation Form, Thank You Letter, Antibiotic Education, Prescription Opioid Use form. - Follow up: Private Physician; When: As needed; Reason: Recheck today's complaints, Re-evaluation by your physician. - Problem is new. - Symptoms have improved. Signatures: Evelio Thomas, RN RN em Tru Hughes MD MD rn Roque, Raymond RN RN rr5 Corrections: (The following items were deleted from the chart) 06:15 06:14 Constitutional: Negative for fever, chills, and weight loss, ENT: + dental pain rnrn 06:27 06:18 04/24/2020 06:18 Discharged to Home. Impression: Dental caries. Condition is rr5 Stable. Forms are Medication Reconciliation Form, Thank You Letter, Antibiotic Education, Prescription Opioid Use. Follow up: Private Physician; When: As needed; Reason: Recheck today's complaints, Re-evaluation by your physician. Problem is new. Symptoms have improved. rn
[2020-04-24 06:31] VITALS: TEMP 98.5
[2020-04-24 06:32] VITALS: BP 141/75; O2SAT 99
== END 2020-04-24 06:27 | disposition home or self-care (01) ==
LOC: ER 06:00
DX: K02.9 Dental caries, unspecified (principal); E11.9 Type 2 diabetes mellitus without complications; Z79.4 Long term (current) use of insulin
CPT/HCPCS: 99282

== ENCOUNTER 2020-07-09 20:39 | Emergency (ER) | payer SELFPAY ==
[2020-07-09 22:51] LABS: Absolute Lymphocytes (CBC) 1.3 K/uL (0.7-4.9); Basophils % 0.3 % (0-1.3); Hematocrit 40.3 % (36.0-45.0); Lymphocytes % 14.2 % (15.3-44.8); MPV 9.8 fL (7.6-11.3); RBC Red Blood Cell Count 4.69 M/uL (3.86-4.86)
[2020-07-09 23:00] LABS: Protime INR 1.18
[2020-07-09 23:08] LABS: ALT/SGPT 34 U/L (12-78); AST/SGOT 25 U/L (15-37); Albumin 3.1 g/dL (3.4-5.0); Alkaline Phosphatase 106 U/L (45-117); BUN Blood Urea Nitrogen 12 mg/dL (7-18); Bicarbonate 28 mmol/L (21-32); Bilirubin Direct < 0.1 mg/dL (0-0.2); Bilirubin Total 0.3 mg/dL (0.2-1.0); Glucose Level 182 mg/dL (74-106); Potassium 3.7 mmol/L (3.5-5.1); Protein, Total 7.5 g/dL (6.4-8.2); Sodium Level 144 mmol/L (136-145)
[2020-07-09] MEDS ORDERED: NA CHLORIDE 0.9% 1,000 ML ONE (23:11)
[2020-07-09] MEDS ORDERED: MORPHINE 4 MG/ML SYR ONE (23:11)
[2020-07-10] MEDS ORDERED: LIDOCAINE 1% W/EPI 1:100,000 MDV 20 ML VIAL ONE (00:45)
--- NOTE | 2020-07-10 01:15 | ER ---
Nurse's Notes [facility] Name: Chantelle Woodward Age: 49 yrs Sex: Female : 1970 Arrival Date: 07/09/2020 Time: 20:41 Bed 13 Private MD: Diagnosis: Cutaneous abscess of groin-right Presentation: 07/09 21:08 Chief complaint: Patient states: I have a large wound on my upper right groin area that bb started a couple of days ago and it is getting bigger. Coronavirus screen: Client denies travel out of the [place] in the last 14 days. Ebola Screen: Patient negative for fever greater than or equal to 101.5 degrees Fahrenheit, and additional compatible Ebola Virus Disease symptoms Patient denies exposure to infectious person. Patient denies travel to an Ebola-affected area in the 21 days before illness onset. Initial Sepsis Screen: Does the patient meet any 2 criteria? Temp <36.0*C (96.8*F)) or > 38.3*C (100.9*F). No. Patient's initial sepsis screen is negative. Does the patient have a suspected source of infection? Yes: Skin breakdown/wound. Risk Assessment: Do you want to hurt yourself or someone else? Patient reports no desire to harm self or others. Onset of symptoms was July 07, 2020. 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 - Social history:: Smoking status: Patient reports the use of cigarette tobacco products, smokes one-half pack cigarettes per day, Patient uses alcohol, occasionally. Patient/guardian denies using street drugs. Screenin:57 Abuse screen: Denies threats or abuse. Denies injuries from another. Nutritional sf screening: No deficits noted. Tuberculosis screening: No symptoms or risk factors identified. Fall Risk None identified. Total Cerna Fall Scale indicates No Risk (0-24 pts). Assessment: 21:57 General: Appears in no apparent distress. uncomfortable, Behavior is calm, cooperative. sf Pain: Complains of pain in groin and right femoral area. Neuro: No deficits noted. Level of Consciousness is awake, alert, Oriented to person, place, time, situation. Cardiovascular: No deficits noted. Patient's skin is warm and dry. Respiratory: No deficits noted. Airway is patent Respiratory effort is even, unlabored, Respiratory pattern is regular, symmetrical. GI: No deficits noted. No signs and/or symptoms were reported involving the gastrointestinal system. : No deficits noted. No signs and/or symptoms were reported regarding the genitourinary system. EENT: No deficits noted. No signs and/or symptoms were reported regarding the EENT system. Derm: Wound noted groin and right femoral area Abscess located on groin and right femoral area is golf ball sized, has no drainage, is raised, Reports pain. Musculoskeletal: No deficits noted. No signs and/or symptoms reported regarding the musculoskeletal system. 23:54 Reassessment: Patient appears in no apparent distress at this time. Patient and/or sf family updated on plan of care and expected duration. Pain level reassessed. Patient is alert, oriented x 3, equal unlabored respirations, skin warm/dry/pink. Patient states feeling better. Patient states symptoms have improved. 07/10 01:00 Reassessment: Patient appears in no apparent distress at this time. Patient and/or sf family updated on plan of care and expected duration. Pain level reassessed. Patient is alert, oriented x 3, equal unlabored respirations, skin warm/dry/pink. Patient states feeling better. Patient states symptoms have improved. Vital Signs: 07/09 21:10 BP 148 / 85; Pulse 102; Resp 16; Temp 99.5; Pulse Ox 100% ; Weight 82.55 kg; Height 5 bb ft. 7 in. (170.18 cm); Pain 8/10; 22:55 BP 112 / 74; Pulse 106; Resp 16; Pulse Ox 100% ; sf 23:00 BP 118 / 75; Pulse 106; Resp 16; Pulse Ox 100% ; sf 23:49 BP 110 / 70; Pulse 106; Resp 16; Pulse Ox 100% ; sf 07/10 00:00 BP 121 / 70; Pulse 105; Resp 16; Pulse Ox 100% ; sf 00:30 BP 110 / 79; Pulse 104; Resp 16; Pulse Ox 100% ; sf 01:46 BP 104 / 84; Pulse 105; Resp 16; Pulse Ox 100% ; sf 07/09 21:10 Body Mass Index 28.50 (82.55 kg, 170.18 cm) bb ED Course: 07/09 20:41 Patient arrived in ED. cf2 21:10 Triage completed. bb 21:13 Arm band placed on right wrist. bb 21:36 Parag Zayas PA is PHCP. cp 21:36 Tru Hughes MD is Attending Physician. cp 21:44 Gilmer Silva RN is Primary Nurse. sf 21:49 Patient has correct armband on for positive identification. Bed in low position. Call sf light in reach. Side rails up X 1. Door closed. Noise minimized. Visitors limited. Lights dimmed. Warm blanket given. Verbal reassurance given. 22:25 Initial lab(s) drawn, by me, sent to lab. First set of blood cultures drawn by me. sf Inserted saline lock: 22 gauge in right forearm, using aseptic technique. Blood collected. 22:35 Second set of blood cultures drawn by me. sf 22:40 Blood Culture Adult (2) Sent. sf 23:27 CT Abd/Pelvis - IV Contrast Only Sent. sf 23:47 CT Abd/Pelvis - IV Contrast Only In Process Unspecified. EDMS 07/10 00:25 Assist provider with I \T\ D: of an abscess on right groin Set up I\T\D tray. Performed by gurmeet CHAMORRO Culture sent to lab. Dressing with Patient tolerated well. assisted by DEMI Srinivasan. 01:13 Hany Alberts MD is Referral Physician. cp 01:54 IV discontinued, intact, bleeding controlled, No redness/swelling at site. Pressure sf dressing applied. Administered Medications: 07/09 22:57 Drug: NS 0.9% 1000 ml Route: IV; Rate: 1 bolus; Site: right forearm; sf 23:54 Follow up: Response: No adverse reaction; IV Status: Completed infusion; IV Intake: sf 1000ml 22:59 Drug: morphine 4 mg Route: IVP; Site: right forearm; sf 23:54 Follow up: Response: No adverse reaction; Pain is decreased sf 07/10 00:25 Drug: Marcaine (bupivacaine) (0.5 %) 10 ml {Note: by Parag Zayas PA-C.} Volume: 10 ml; sf Route: Infiltration; 00:25 Drug: Lidocaine-Epinephrine -1%: (1:100,000) 10 ml {Note: by Parag Zayas PA-C.} Volume: sf 20 ml; Route: Infiltration; 01:05 Drug: Bactrim (160 mg-800 mg (DS) 2 tablet Route: PO; sf 01:46 Follow up: Response: No adverse reaction sf 01:05 Drug: HYDROcodone-acetaminophen 10 mg-325 mg 1 tabs Route: PO; sf 01:46 Follow up: Response: No adverse reaction sf 01:07 Drug: Clindamycin 900 mg Route: IVPB; Infused Over: 30 mins; Site: right forearm; sf 01:35 Follow up: Response: No adverse reaction; IV Status: Completed infusion; IV Intake: 50mlsf Intake: 07/09 23:54 IV: 1000ml; Total: 1000ml. sf 04 01:35 IV: 50ml; Total: 1050ml. Outcome: 01:14 Discharge ordered by MD. cp 01:54 Discharged to home ambulatory. sf 01:54 Condition: stable 01:54 Discharge instructions given to patient, Instructed on discharge instructions, follow up and referral plans. medication usage, Demonstrated understanding of instructions, follow-up care, medications, Prescriptions given X 3. 01:55 Patient left the ED. sf Addendum: 07/13/2020 07:23 Addendum: Culture Results: Positive wound culture. No further action required. Bacteria e b sensitive to prescribed antibiotic. Signatures: Dispatcher [employer] EDMS Daisy Richey RN RN Parag Mora PA PA cp Botello, Elizabeth eb Frazier, Celesta 2 Gilmer Silva RN RN sf Corrections: (The following items were deleted from the chart) 07/09 22:03 21:12 Home Meds: Insulin: Novolin 70/30 Sub-Q twice a day; nataliya levi 22:03 21:12 Social history: Smoking status: Patient reports the use of cigarette tobacco sf products, smokes one-half pack cigarettes per day, Patient/guardian denies using alcohol, street drugs, bb
--- NOTE | 2020-07-10 01:15 | EDPHYS ---
Physician Documentation [facility] Name: Chantelle Woodward Age: 49 yrs Sex: Female : 1970 Arrival Date: 07/09/2020 Time: 20:41 Bed 13 Private MD: ED Physician Tru Hughes HPI: 07/09 22:05 This 49 yrs old Black Female presents to ER via Ambulatory with complaints of Abscess. cp 22:05 The patient presents with an abscess of the right groin area. Description: cp erythematous, fluctuant, swollen, warm. 22:05 Onset: The symptoms/episode began/occurred 2 day(s) ago. cp 22:05 Possible cause(s): unknown. Associated signs and symptoms: Pertinent positives: cp erythema, swelling, Pertinent negatives: discharge, drainage, fever. Severity of symptoms: in the emergency department the symptoms are unchanged, despite home interventions. The patient has experienced similar episodes in the past, a few times, Patient reports having similar abscess in groin area drained by surgery in the past. 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 - Social history:: Smoking status: Patient reports the use of cigarette tobacco products, smokes one-half pack cigarettes per day, Patient uses alcohol, occasionally. Patient/guardian denies using street drugs. ROS: 22:10 Skin: Positive for abscess, cellulitis, of the right groin. cp 22:10 Constitutional: Negative for body aches, chills, fever, poor PO intake. cp 22:10 Cardiovascular: Negative for chest pain. 22:10 Respiratory: Negative for cough, shortness of breath, wheezing. 22:10 Abdomen/GI: Negative for abdominal pain, nausea, vomiting, and diarrhea. 22:10 Neuro: Negative for altered mental status, headache, weakness. 22:10 All other systems are negative. Exam: 22:15 Constitutional: The patient appears in no acute distress, alert, awake, non-toxic, well cp developed, well nourished, uncomfortable. 22:15 Head/Face: Normocephalic, atraumatic. cp 22:15 Eyes: Periorbital structures: appear normal, Conjunctiva: normal, no exudate, no injection, Sclera: no appreciated abnormality, Lids and lashes: appear normal, bilaterally. 22:15 Chest/axilla: Inspection: normal, Palpation: is normal, no crepitus, no tenderness. 22:15 Cardiovascular: Rate: tachycardic, Rhythm: regular. 22:15 Respiratory: the patient does not display signs of respiratory distress, Respirations: normal, no use of accessory muscles, no retractions, labored breathing, is not present, Breath sounds: are clear throughout, no decreased breath sounds. 22:15 Abdomen/GI: Inspection: abdomen appears normal, Palpation: abdomen is soft and non-tender, in all quadrants. 22:15 Skin: abscess, that is moderate sized, of the right groin, with fluctuance, that is mild, with surrounding cellulitis, that is mild. Vital Signs: 21:10 BP 148 / 85; Pulse 102; Resp 16; Temp 99.5; Pulse Ox 100% ; Weight 82.55 kg; Height 5 bb ft. 7 in. (170.18 cm); Pain 8/10; 22:55 BP 112 / 74; Pulse 106; Resp 16; Pulse Ox 100% ; sf 23:00 BP 118 / 75; Pulse 106; Resp 16; Pulse Ox 100% ; sf 23:49 BP 110 / 70; Pulse 106; Resp 16; Pulse Ox 100% ; sf 07/10 00:00 BP 121 / 70; Pulse 105; Resp 16; Pulse Ox 100% ; sf 00:30 BP 110 / 79; Pulse 104; Resp 16; Pulse Ox 100% ; sf 01:46 BP 104 / 84; Pulse 105; Resp 16; Pulse Ox 100% ; sf 07/09 21:10 Body Mass Index 28.50 (82.55 kg, 170.18 cm) bb MDM: 07/09 21:50 Patient medically screened. cp 22:30 Differential diagnosis: abscess, cellulitis, sepsis, boil. cp 07/10 01:12 Data reviewed: vital signs, nurses notes, lab test result(s), radiologic studies, CT cp scan. 01:12 Counseling: I had a detailed discussion with the patient and/or guardian regarding: the cp historical points, exam findings, and any diagnostic results supporting the discharge/admit diagnosis, lab results, radiology results, the need for outpatient follow up, a general surgeon, to return to the emergency department if symptoms worsen or persist or if there are any questions or concerns that arise at home. Response to treatment: the patient's symptoms have markedly improved after treatment, and as a result, I will discharge patient. 07/09 22:07 Order name: Basic Metabolic Panel; Complete Time: 23:14 cp 07/09 23:16 Interpretation: Normal except: CL 109; GLUC 182. cp 07/09 22:07 Order name: CBC with Diff; Complete Time: 22:56 cp 07/09 23:16 Interpretation: Normal except: JANIE% 76.6; LYM% 14.2. cp 07/09 22:07 Order name: Hepatic Function; Complete Time: 23:14 cp 07/09 23:25 Interpretation: Normal except: ALB 3.1; GLOB 4.4; A/G 0.7. cp 07/09 22:07 Order name: PT-INR; Complete Time: 23:14 cp 07/09 22:07 Order name: Lactate; Complete Time: 23:14 cp 07/09 22:07 Order name: Procalcitonin; Complete Time: 23:46 cp 07/09 23:46 Interpretation: Reviewed. cp 07/09 22:07 Order name: Blood Culture Adult (2) cp 07/09 22:07 Order name: CT Abd/Pelvis - IV Contrast Only cp 07/10 00:56 Order name: Wound Culture 07/10 00:56 Order name: Wound Culture EDMI 07/09 22:07 Order name: IV Saline Lock; Complete Time: 22:41 cp 07/09 22:07 Order name: Labs collected and sent; Complete Time: 22:41 cp 07/09 22:07 Order name: Urine Dipstick-Ancillary (obtain specimen) 07/09 23:44 Order name: I\T\D Setup; Complete Time: 00:57 cp Administered Medications: 07/09 22:57 Drug: NS 0.9% 1000 ml Route: IV; Rate: 1 bolus; Site: right forearm; sf 23:54 Follow up: Response: No adverse reaction; IV Status: Completed infusion; IV Intake: sf 1000ml 22:59 Drug: morphine 4 mg Route: IVP; Site: right forearm; sf 23:54 Follow up: Response: No adverse reaction; Pain is decreased sf 07/10 00:25 Drug: Marcaine (bupivacaine) (0.5 %) 10 ml {Note: by Parag Zayas PA-C.} Volume: 10 ml; sf Route: Infiltration; 00:25 Drug: Lidocaine-Epinephrine -1%: (1:100,000) 10 ml {Note: by Parag Zayas PA-C.} Volume: sf 20 ml; Route: Infiltration; 01:05 Drug: Bactrim (160 mg-800 mg (DS) 2 tablet Route: PO; sf 01:46 Follow up: Response: No adverse reaction sf 01:05 Drug: HYDROcodone-acetaminophen 10 mg-325 mg 1 tabs Route: PO; sf 01:46 Follow up: Response: No adverse reaction sf 01:07 Drug: Clindamycin 900 mg Route: IVPB; Infused Over: 30 mins; Site: right forearm; sf 01:35 Follow up: Response: No adverse reaction; IV Status: Completed infusion; IV Intake: 50mlsf Disposition: 01:30 Chart complete. cp 02:34 Co-signature as Attending Physician, Tru Hughes MD. rn Disposition: 07/10/20 01:14 Discharged to Home. Impression: Cutaneous abscess of groin - right. - Condition is Stable. - Discharge Instructions: Skin Abscess, Incision and Drainage. - Prescriptions for Clindamycin HCl 300 mg Oral Capsule - take 1 capsule by ORAL route every 6 hours for 10 days; 40 capsule. Tylenol- Codeine #3 300-30 mg Oral Tablet - take 2 tablets by ORAL route every 8-10 hours As needed; 20 tablet. Bactrim DS 800- 160 mg Oral Tablet - take 1 tablet by ORAL route every 12 hours for 10 days; 20 tablet. - Medication Reconciliation Form, Thank You Letter, Antibiotic Education, Prescription Opioid Use form. - Follow up: Hany Alberts MD; When: 2 - 3 days; Reason: Worsening of condition. - Problem is new. - Symptoms have improved. Signatures: Dispatcher [employer] Daisy Rodriguez RN RN bb Nieto, Roman, MD MD rn Attema, Lee, SILK OPENER-C SILK OPENER-Cla1 Parag Zayas PA PA cp Gilmer Silva RN RN sf Corrections: (The following items were deleted from the chart) 07/09 22:03 21:12 Home Meds: Insulin: Novolin 70/30 Sub-Q twice a day; bb 22:03 21:12 Social history: Smoking status: Patient reports the use of cigarette tobacco sf products, smokes one-half pack cigarettes per day, Patient/guardian denies using alcohol, street drugs, 22:41 22:07 Urine Test ordered. [facility] 07/10 01:55 01:14 07/10/2020 01:14 Discharged to Home. Impression: Cutaneous abscess of groin - sf right. Condition is Stable. Prescriptions for Clindamycin HCl 300 mg Oral Capsule - take 1 capsule by ORAL route every 6 hours for 10 days; 40 capsule, Tylenol-Codeine #3 300-30 mg Oral Tablet - take 2 tablets by ORAL route every 8-10 hours As needed; 20 tablet, Bactrim DS 800-160 mg Oral Tablet - take 1 tablet by ORAL route every 12 hours for 10 days; 20 tablet. and Forms are Medication Reconciliation Form, Thank You Letter, Antibiotic Education, Prescription Opioid Use. Follow up: Hany Alberts; When: 2 - 3 days; Reason: Worsening of condition. Problem is new. Symptoms have improved. cp
[2020-07-10] MEDS ORDERED: HYDROCODONE/APAP 10/325 TAB ONE (01:19)
[2020-07-10] MEDS ORDERED: SMZ./TMP. 800/160 MG TABLET ONE (01:20)
[2020-07-10] MEDS ORDERED: CLINDAMYCIN 900MG/D5W 900 MG/50 ML IVPB IV ONE (01:20)
[2020-07-10 02:28] VITALS: TEMP 99.5; O2SAT 100
[2020-07-10 02:35] VITALS: BP 104/84
--- NOTE | 2020-07-10 13:29 | RAD REPORT ---
EXAM DESCRIPTION: Abdomen Pelvis W Contrast 07/09/2020 11:53 PM CDT CLINICAL HISTORY: 49 years, Female, right groin swelling/abscess COMPARISON: Previous CT scan of the pelvis performed 10/23/2018. TECHNIQUE: Contrast-enhanced images of the abdomen and pelvis were performed utilizing 5 mm slice th ickness at 5 mm interval reconstruction from the lung bases to the ischial tuberosities after the adm inistration of IV contrast. Subsequent slight delayed portal venous phase was also generated and revi ewed. In addition multiplanar reformats in the coronal and sagittal plane were obtained and reviewed. An individualized dose optimization technique, Automated Exposure Control, was utilized for the perfo rmed procedure. FINDINGS: The lung bases demonstrate to be clear. The liver demonstrated the presence of peripheral nodular enhancing lesion dome of the liver anterior segment right hepatic lobe measuring approximately 2.4 x 2 cm on image 8/57 which on portal venous p hase increased peripheral enhancement corresponding to a hemangioma. There is a second enhancing lesi on within the confluence of the right and left hepatic lobe at the gallbladder fossa area measuring 2 .1 x 2 cm on image 22/57 corresponding most likely to a flash hemangioma. There is a inferior posteri or right hepatic lobe subcapsular peripheral enhancing lesion measuring approximately 2.6 x 2.3 cm on image 30/57 corresponding to most likely a hemangioma. The gallbladder, pancreas, spleen and adrenal glands demonstrate to be unremarkable, no focal lesions are noted. The kidneys demonstrate normal uptake of contrast media. No nephrolithiasis and/or hydronephrosis w as identified. Grossly the unopacified stomach, small bowel and large bowel demonstrate to be within normal limits. There is no evidence for bowel dilatation/or free air. The appendix is normal. The urinary bladder demonstrate to be unremarkable. The uterus is absent. There are no adnexal mass es. Benign medications within the pelvic floor corresponding to phlebolith. The aorta demonstrate t o be normal. There is no retroperitoneal lymphadenopathy. There is no evidence for ascites and/or s ignificant abnormal fluid collections. The bone windows demonstrate no significant skeletal lesions. There is haziness within the skin/subcutaneous tissue along the right inguinal area/groin measuring 3 .5 x 2.2 x 2.6 cm perhaps suggesting the possibility of a small abscess/phlegmon with tiny area of ai r bubble along the superior aspect on image 83/99-88/99. IMPRESSION: Right inguinal area/groin complex hypoechoic/fluid collection measuring 3.5 x 2.2 x 2.6 cm corresponding to a small abscess/phlegmon. Electronically signed by: Mukesh Lu MD 07/10/2020 12:00 AM CDT Due to temporary technical issues with the PACS/Fluency reporting system, reports are being signed by the in house radiologists without review as a courtesy to insure prompt reporting. The interpreting radiologist is fully responsible for the content of the report.
== END 2020-07-10 01:55 | disposition home or self-care (01) ==
LOC: ER 20:39
PROC: 0J9C0ZZ Drainage of Pelvic Region Subcutaneous Tissue and Fascia, Open Approach (ICD-10-PCS; principal; 2020-07-10)
DX: L02.214 Cutaneous abscess of groin (principal); E11.9 Type 2 diabetes mellitus without complications; F17.210 Nicotine dependence, cigarettes, uncomplicated; Z79.4 Long term (current) use of insulin
CPT/HCPCS: 36415; 74177; 80048; 80076; 83605; 84145; 85025; 85610; 87040; 87070; 87077; 87186; 87205; 96361; 96365; 96375; 99284; J7030; Q9967

== ENCOUNTER 2022-03-22 05:58 | Emergency (ER) | payer SELFPAY ==
[2022-03-22] MEDS ORDERED: NA CHLORIDE 0.9% 1,000 ML ONE ×2 (06:43→09:17)
[2022-03-22 06:57] LABS: Urine Blood Negative (Negative); Urine Glucose 2+ (Negative); Urine Protein Negative (Negative); Urine Specific Gravity >=1.030 (1.005-1.030); Urine pH 5.5 (5.0-7.0)
[2022-03-22 07:35] LABS: Urine Bacteria <20 /HPF (<20); Urine Mucus Slight /HPF (None Seen); Urine RBC <5 /HPF (None Seen)
[2022-03-22 08:48] LABS: Absolute Lymphocytes (CBC) 1.8 K/uL (0.7-4.9); Lymphocytes % 46.7 % (15.3-44.8); MCV 86.7 fL (80-100); MPV 9.7 fL (7.6-11.3); RBC Red Blood Cell Count 5.18 M/uL (3.86-4.86)
[2022-03-22 09:34] LABS: SARS-COV-2 RT PCR POSITIVE (NEGATIVE)
[2022-03-22 10:03] LABS: ALT/SGPT 29 U/L (13-56); Albumin 3.7 g/dL (3.4-5.0); Alkaline Phosphatase 93 U/L (45-117); BUN Blood Urea Nitrogen 10 mg/dL (7-18); Bicarbonate 26 mmol/L (21-32); Bilirubin Total 0.2 mg/dL (0.2-1.0); Glomerular Filtration Rate 92 ml/min (=/>90); Glucose Level 268 mg/dL (74-106); Protein, Total 7.6 g/dL (6.4-8.2); Sodium Level 140 mmol/L (136-145); Troponin High Sensitivity 6.9 pg/mL (<58.9)
[2022-03-22 10:11] LABS: AST/SGOT 22 U/L (15-37); Potassium 4.1 mmol/L (3.5-5.1)
--- NOTE | 2022-03-22 10:14 | EDPHYS ---
Physician Documentation [facility] Name: Chantelle Woodward Age: 51 yrs Sex: Female : 1970 Arrival Date: 03/22/2022 Time: 06:02 Bed 5 Private MD: KIRSTIN Physician Parag Miller HPI: 03/22 07:03 This 51 yrs old Black Female presents to ER via Ambulatory with complaints of Blood rt Sugar Problem, Blurred Vision, Congestion. 07:03 Onset: The symptoms/episode began/occurred 2 week(s) ago. With reported history of rt insulin-dependent diabetes, states that she was taken off of her insulin at about 2 weeks ago due to weight loss. She has been hyperglycemic to the 3-400 since then. She reports lightheadedness, fatigue, blurred vision. She reports a dry mouth. Denies other acute complaints at this time, symptoms are moderate severity, no other aggravating or alleviating factors.. 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 - Social history:: Smoking status: Patient reports the use of cigarette tobacco products, smokes one-half pack cigarettes per day. - Family history:: not pertinent. ROS: 07:03 Eyes: Positive for blurry vision, Negative for discharge. rt 07:06 Cardiovascular: Negative for chest pain, palpitations, and edema, Respiratory: Negative rt for shortness of breath, cough, wheezing, and pleuritic chest pain, Abdomen/GI: Negative for abdominal pain, nausea, vomiting, diarrhea, and constipation, Back: Negative for injury and pain, MS/Extremity: Negative for injury and deformity, Skin: Negative for injury, rash, and discoloration, Neuro: Negative for headache, weakness, numbness, tingling, and seizure, Psych: Negative for depression, anxiety, suicide ideation, homicidal ideation, and hallucinations. 07:06 Constitutional: Positive for fatigue, Negative for fever. Exam: 07:06 Constitutional: This is a well developed, well nourished patient who is awake, alert, rt and in no acute distress. Head/Face: Normocephalic, atraumatic. Eyes: Pupils equal round and reactive to light, extra-ocular motions intact. Lids and lashes normal. Conjunctiva and sclera are non-icteric and not injected. Cornea within normal limits. Periorbital areas with no swelling, redness, or edema. Neck: Trachea midline, no thyromegaly or masses palpated, and no cervical lymphadenopathy. Supple, full range of motion without nuchal rigidity, or vertebral point tenderness. No Meningismus. Chest/axilla: Normal chest wall appearance and motion. Nontender with no deformity. No lesions are appreciated. Cardiovascular: Regular rate and rhythm with a normal S1 and S2. No gallops, murmurs, or rubs. Normal PMI, no JVD. No pulse deficits. Respiratory: Lungs have equal breath sounds bilaterally, clear to auscultation and percussion. No rales, rhonchi or wheezes noted. No increased work of breathing, no retractions or nasal flaring. Abdomen/GI: Soft, non-tender, with normal bowel sounds. No distension or tympany. No guarding or rebound. No evidence of tenderness throughout. Back: No spinal tenderness. No costovertebral tenderness. Full range of motion. Skin: Warm, dry with normal turgor. Normal color with no rashes, no lesions, and no evidence of cellulitis. MS/ Extremity: Pulses equal, no cyanosis. Neurovascular intact. Full, normal range of motion. Neuro: Awake and alert, GCS 15, oriented to person, place, time, and situation. Cranial nerves II-XII grossly intact. Motor strength 5/5 in all extremities. Sensory grossly intact. Cerebellar exam normal. Normal gait. Psych: Awake, alert, with orientation to person, place and time. Behavior, mood, and affect are within normal limits. 07:06 ENT: Mucous membranes, OP benign. 07:06 ECG was reviewed by the Attending Physician. Vital Signs: 06:12 BP 133 / 75; Pulse 83; Resp 15; Temp 98.6(O); Pulse Ox 100% on R/A; Weight 81.65 kg; vc1 Height 5 ft. 7 in. (170.18 cm); Pain 7/10; 11:25 BP 132 / 74; Pulse 83; Resp 15; Pulse Ox 100% ; jl7 06:12 Body Mass Index 28.19 (81.65 kg, 170.18 cm) vc1 MDM: 06:25 Patient medically screened. rt 08:44 Data reviewed: vital signs, nurses notes, lab test result(s), EKG. Data interpreted: [facility] psychiatric orderly: rate is 83 beats/min, rhythm is regular, Pulse oximetry: on room air is 100 %. Test interpretation: by ED physician or midlevel provider: ECG, plain radiologic studies. Counseling: I had a detailed discussion with the patient and/or guardian regarding: the historical points, exam findings, and any diagnostic results supporting the discharge/admit diagnosis, lab results, the need for outpatient follow up, for definitive care, a family practitioner. 03/22 06:38 Order name: CBC with Diff; Complete Time: 09:02 rt 03/22 06:38 Order name: CMP rt 03/22 06:38 Order name: UA MICROSCOPIC; Complete Time: 08:44 rt 03/22 06:38 Order name: Ketone, Serum rt 03/22 06:38 Order name: COVID-19/FLU A+B; Complete Time: 09:43 rt 03/22 06:38 Order name: Troponin High Sensitivity rt 03/22 06:38 Order name: Urine Dipstick-Ancillary (obtain specimen); Complete Time: 06:56 rt 03/22 06:38 Order name: Chest Single View XRAY; Complete Time: 10:48 rt 03/22 06:38 Order name: EKG; Complete Time: 06:38 rt 03/22 06:57 Order name: Urine Dipstick-Ancillary; Complete Time: 07:13 EDMS 03/22 07:10 Order name: Glucose, Ancillary Testing; Complete Time: 07:13 EDMS 03/22 06:38 Order name: EKG - Nurse/Tech; Complete Time: 06:56 rt 03/22 06:38 Order name: Accucheck; Complete Time: 06:59 rt EC:06 Rate is 73 beats/min. Rhythm is regular, Normal Sinus Rhythm with No ectopy. QRS [place] rt is Normal. CA interval is normal. QRS interval is normal. QT interval is normal. No Q waves. T waves are Normal. No ST changes noted. Administered Medications: 08:34 Drug: NS 0.9% 1000 ml Route: IV; Rate: 1 bolus; Site: right forearm; bp 11:00 Follow up: IV Status: Completed infusion; IV Intake: 1000ml bp 11:30 Follow up: Response: No adverse reaction; IV Intake: 1000ml jl7 09:15 Drug: NS 0.9% 1000 ml Route: IV; Rate: 1 bolus; Site: right forearm; bp 11:30 Follow up: IV Intake: 1000ml jl7 10:30 Drug: Semglee 100 unit/mL 25 units Route: Sub-Q; Site: left upper arm; bp 11:00 Follow up: Response: No adverse reaction bp Disposition Summary: 03/22/22 10:13 Discharge Ordered [facility]: Home [facility] Problem: new [facility] Symptoms: have improved [facility] Condition: Stable [facility] Diagnosis - Type 2 diabetes mellitus with hyperglycemia [facility] - Coronavirus infection, unspecified [facility] - SARS-associated coronavirus as the cause of diseases classified elsewhere [facility] Followup: [facility] - With: Private Physician - When: 2 - 3 days - Reason: Recheck today's complaints, Continuance of care, Re-evaluation by your physician Followup: [facility] - With: - When: 2 - 3 days - Reason: Recheck today's complaints, Continuance of care, Re-evaluation by your physician Discharge Instructions: - Discharge Summary Sheet [facility] - Type 2 Diabetes Mellitus, Diagnosis, Adult [facility] - Hyperglycemia [facility] - Diabetes Mellitus and Nutrition, Adult [facility] - Aspirin and Your Heart [facility] - COVID-19 [facility] - 10 Things You Can Do to Manage Your COVID-19 Symptoms at Home - [facility] - COVID-19: Quarantine vs. Isolation - [facility] - Prevent the Spread of COVID-19 if You Are Sick - [facility] Forms: - Medication Reconciliation Form [facility] - Thank You Letter [facility] - Antibiotic Education [facility] - Prescription Opioid Use [facility] - Work release form bp Prescriptions: - Pepcid 20 mg Oral Tablet - take 1 tablet by ORAL route every 12 hours for 21 days; 42 tablet; Refills: 0, [facility] Product Selection Permitted - Zofran 4 mg Oral Tablet - take 1 tablet by ORAL route every 12 hours As needed; 30 tablet; Refills: 0, [facility] Product Selection Permitted - Metformin 500 mg Oral Tablet - take 1 tablet by ORAL route every 12 hours for 21 days Then take 1 tablet with [facility] morning meals AND evening meals; 42 tablet; Refills: 0, Product Selection Permitted Signatures: Dispatcher [employer] Parag Joyner MD MD cha Peltier, Brian, RN RN bp Danyelle Newsome RN RN vc1 Jamie Caal MD MD rt Leal, Jahala RN jl7
--- NOTE | 2022-03-22 10:14 | ER ---
Nurse's Notes [facility] Name: Chantelle Woodward Age: 51 yrs Sex: Female : 1970 Arrival Date: 03/22/2022 Time: 06:02 Bed 5 Private MD: Diagnosis: Type 2 diabetes mellitus with hyperglycemia;Coronavirus infection, unspecified;SARS-associated coronavirus as the cause of diseases classified elsewhere Presentation: 03/22 06:12 Chief complaint: Patient states: "I was at work and felt like I was going to pass out, vc1 I have no energy, a headache and blurred vision. They checked my sugar and it was 336. I used to take medication for diabetes but I lost a bunch of weight and haven't had to take them in 2 weeks.". Coronavirus screen: Vaccine status: Patient reports being unvaccinated. Client denies travel out of the [place] in the last 14 days. headache, muscle pain, Client presents with at least one sign or symptom that may indicate coronavirus-19. Standard/surgical mask placed on the client. Provider contacted for isolation considerations. Ebola Screen: No symptoms or risks identified at this time. Initial Sepsis Screen: Does the patient meet any 2 criteria? No. Patient's initial sepsis screen is negative. Does the patient have a suspected source of infection? No. Patient's initial sepsis screen is negative. Risk Assessment: Do you want to hurt yourself or someone else? Patient reports no desire to harm self or others. Onset of symptoms was March 22, 2022. 06:12 Method Of Arrival: Ambulatory vc1 06:12 Acuity: TERRY 3 vc1 Triage Assessment: 06:17 General: Appears in no apparent distress. comfortable, Behavior is calm, cooperative, vc1 appropriate for age. Pain: Complains of pain in head Pain does not radiate. Pain currently is 7 out of 10 on a pain scale. EENT: Reports blurred vision. Neuro: Level of Consciousness is awake, alert, obeys commands, Oriented to person, place, time, situation, Appropriate for age Reports blurred vision. Neuro: Reports dizziness, headache. Cardiovascular: No deficits noted. Respiratory: Airway is patent Respiratory effort is even, unlabored, Respiratory pattern is regular, symmetrical. GI: No deficits noted. No signs and/or symptoms were reported involving the gastrointestinal system. : No deficits noted. No signs and/or symptoms were reported regarding the genitourinary system. Derm: No deficits noted. No signs and/or symptoms reported regarding the dermatologic system. Musculoskeletal: No deficits noted. No signs and/or symptoms reported regarding the musculoskeletal system. 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 - Social history:: Smoking status: Patient reports the use of cigarette tobacco products, smokes one-half pack cigarettes per day. - Family history:: not pertinent. Screenin:19 [facility] ED Fall Risk Assessment (Adult) History of falling in the last 3 months, vc1 including since admission No falls in past 3 months (0 pts) Confusion or Disorientation No (0 pts) Intoxicated or Sedated No (0 pts) Impaired Gait No (0 pts) Mobility Assist Device Used No (0 pt) Altered Elimination No (0 pt). Abuse screen: Denies threats or abuse. Nutritional screening: No deficits noted. Tuberculosis screening: No symptoms or risk factors identified. Assessment: 07:00 General: Appears in no apparent distress. comfortable, Behavior is calm, cooperative, aa9 appropriate for age. Neuro: Level of Consciousness is awake, alert, obeys commands, Oriented to person, place, time, situation. Cardiovascular: Patient's skin is warm and dry. Respiratory: Airway is patent Respiratory effort is even, unlabored. GI: No signs and/or symptoms were reported involving the gastrointestinal system. : No signs and/or symptoms were reported regarding the genitourinary system. Derm: Skin is intact, with poor turgor. 11:48 Reassessment: Pt up for discharge, fluids completed and ERD reports pt ready for jl7 discharge. Vital Signs: 06:12 BP 133 / 75; Pulse 83; Resp 15; Temp 98.6(O); Pulse Ox 100% on R/A; Weight 81.65 kg; vc1 Height 5 ft. 7 in. (170.18 cm); Pain 7/10; 11:25 BP 132 / 74; Pulse 83; Resp 15; Pulse Ox 100% ; jl7 06:12 Body Mass Index 28.19 (81.65 kg, 170.18 cm) vc1 ED Course: 06:02 Patient arrived in ED. ja2 06:10 Jamie Caal MD is Attending Physician. rt 06:16 Triage completed. vc1 06:19 Arm band placed on right wrist. vc1 06:20 Patient has correct armband on for positive identification. Bed in low position. Call vc1 light in reach. Pulse ox on. NIBP on. 07:07 Chest Single View XRAY In Process Unspecified. EDMS 07:12 Attending Physician role handed off by Jamie Caal MD [facility] 07:12 Parag Miller MD is Attending Physician. [facility] 08:01 Jignesh Laura, LEONARDO is Primary Nurse. bp 08:30 Inserted saline lock: 22 gauge in right forearm, using aseptic technique. Blood bp collected. 10:13 Giancarlo Amaya DO is Referral Physician. [facility] 11:48 No provider procedures requiring assistance completed. IV discontinued, intact, jl7 bleeding controlled, No redness/swelling at site. Pressure dressing applied. Administered Medications: 08:34 Drug: NS 0.9% 1000 ml Route: IV; Rate: 1 bolus; Site: right forearm; bp 11:00 Follow up: IV Status: Completed infusion; IV Intake: 1000ml bp 11:30 Follow up: Response: No adverse reaction; IV Intake: 1000ml jl7 09:15 Drug: NS 0.9% 1000 ml Route: IV; Rate: 1 bolus; Site: right forearm; bp 11:30 Follow up: IV Intake: 1000ml jl7 10:30 Drug: Semglee 100 unit/mL 25 units Route: Sub-Q; Site: left upper arm; bp 11:00 Follow up: Response: No adverse reaction bp Medication: 06:20 VIS not applicable for this client. vc1 Intake: 11:00 IV: 1000ml; Total: 1000ml. bp 11:30 IV: 1000ml; Total: 2000ml. jl7 11:30 IV: 1000ml; Total: 3000ml. jl7 Outcome: 10:13 Discharge ordered by . [facility] 11:48 Discharged to home ambulatory. jl7 11:48 Condition: stable 11:48 Discharge instructions given to patient, Instructed on discharge instructions, follow up and referral plans. medication usage, Demonstrated understanding of instructions, follow-up care, medications, Prescriptions given X 3. 11:50 Patient left the ED. jl7 Signatures: Dispatcher [employer] EDParag Hendricks MD MD cha Leal, Jahala RN RN jl7 Jignesh Laura RN RN Fabiola Restrepo Vanessa, RN RN vc1 Rosa Khan RN RN aa9 Jamie Caal MD MD rt
--- NOTE | 2022-03-22 10:23 | RAD REPORT ---
EXAM DESCRIPTION: RAD - Chest Single View - 03/22/2022 7:05 am CLINICAL HISTORY: COUGH Chest pain. COMPARISON: Chest Single View dated 10/23/2018; CHEST SINGLE VIEW dated 02/01/2015 FINDINGS: Portable technique limits examination quality. The lungs are grossly clear. The heart is normal in size. No displaced fractures. IMPRESSION: No acute intrathoracic process suspected.
[2022-03-22] MEDS ORDERED: INSULIN GLARGINE 100 UNIT/ML SQ ONE (10:59)
[2022-03-22 12:00] VITALS: TEMP 98.6; O2SAT 100
[2022-03-22 12:14] VITALS: BP 132/74
--- NOTE | 2022-03-23 13:42 | EKG ---
Test Date: 2022-03-22 Test Time: 06:51:31 Infantry Assaultman: KIRA MEASUREMENT RESULTS: Intervals: Rate: 73 [place]: 112 QRSD: 76 QT: 400 QTc: 440 [place]: P: 61 [place]: 112 QRS: 57 T: 3 INTERPRETIVE STATEMENTS: Sinus rhythm with marked sinus arrhythmia Nonspecific T wave abnormality Abnormal ECG No previous ECG available for comparison Electronically Signed On 03-23-22 13:39:10 BREAD JOCKEY by Vitaliy Oshea
== END 2022-03-22 11:50 | disposition home or self-care (01) ==
LOC: ER 05:58
DX: U07.1 COVID-19 (principal); E11.65 Type 2 diabetes mellitus with hyperglycemia; F17.210 Nicotine dependence, cigarettes, uncomplicated; Z91.013 Allergy to seafood
CPT/HCPCS: 0240U; 36415; 71045; 80053; 81003; 81015; 82010; 82947; 84484; 85025; 93005; 96360; 96361; 96372; 99284; J7030

== ENCOUNTER 2022-11-03 07:08 | Emergency (ER) | payer SELFPAY ==
[2022-11-03] MEDS ORDERED: NA CHLORIDE 0.9% 1,000 ML ONE (07:38)
[2022-11-03] MEDS ORDERED: INSULIN -REGULAR HUMAN 50 UNIT/0.5 ML ML ONE (07:38)
--- NOTE | 2022-11-03 07:44 | RAD REPORT ---
EXAM DESCRIPTION: CT - Head Brain Wo Cont - 11/03/2022 7:33 am CLINICAL HISTORY: HEADACHE COMPARISON: No comparisons TECHNIQUE: Noncontrast head CT images were obtained without IV contrast. Multiplanar reformats were generated and reviewed. All CT scans are performed using dose optimization technique as appropriate and may include automated exposure control or mA/KV adjustment according to patient size. FINDINGS: No intracranial hemorrhage, mass, or edema. Midline structures are unremarkable. Normal ventricular caliber for age. Doyle-white matter differentiation is preserved, without evidence of acute infarct. No abnormal extra- axial fluid collections. Mastoid air cells are well aerated. Left maxillary sinus mucous retention cyst. No acute bony findings. IMPRESSION: No evidence of an acute intracranial process.
[2022-11-03 07:57] LABS: Absolute Lymphocytes (CBC) 1.2 K/uL (0.7-4.9); Hematocrit 44.9 % (36.0-45.0); Lymphocytes % 34.9 % (15.3-44.8); MCV 87.2 fL (80-100); MPV 9.8 fL (7.6-11.3); Platelets 151 thou/uL (152-406); RBC Red Blood Cell Count 5.15 M/uL (3.86-4.86)
[2022-11-03 08:15] LABS: Albumin 3.4 g/dL (3.4-5.0); Bilirubin Total 0.2 mg/dL (0.2-1.0); Potassium 3.6 mEq/L (3.5-5.1); Protein, Total 7.3 g/dL (6.4-8.2)
--- NOTE | 2022-11-03 09:16 | EDPHYS ---
Physician Documentation [facility] Name: Chantelle Woodward Age: 51 yrs Sex: Female : 1970 Arrival Date: 11/03/2022 Time: 07:08 Bed 18 Private MD: ED Physician Sridhar Amaya HPI: 11/03 07:23 This 51 yrs old Black Female presents to ER via EMS with complaints of Headache and now sp3 resolved blurred Vision. 07:23 51-year-old female with history of diabetes and hypertension now presents to the ED sp3 with headache and a resolved left-sided blurry vision episode. She states her right eye is always blurry secondary to an old injury. She is also recently lost 100 pounds and has been taken off her insulin. Blood sugar at triage was 403. She denies any other symptoms at this time including further blurred vision, neck pain, other cranial nerve or census symptoms, chest pain, shortness of breath, back pain, abdominal pain, nausea, vomiting, diarrhea, numbness or tingling, motor deficit, rash, known sick contacts, travel history, or any other signs or symptoms on ROS at this time.. Historical: - Allergies: 07:12 SHELLFISH; kc6 - PMHx: 07:12 abscess; Diabetes - IDDM; Hypertensive disorder; kc6 - PSHx: 07:12 partial hysterectomy; Thyroidectomy; kc6 - Immunization history:: Client reports having NOT received the Covid vaccine. Flu vaccine is not up to date. - Social history:: Smoking status: Patient reports the use of cigarette tobacco products, smokes one-half pack cigarettes per day. ROS: 07:24 Constitutional: Negative for fever, chills, and weight loss, ENT: Negative for injury, sp3 pain, and discharge, Neck: Negative for injury, pain, and swelling, Cardiovascular: Negative for chest pain, palpitations, and edema, Respiratory: Negative for shortness of breath, cough, wheezing, and pleuritic chest pain, Abdomen/GI: Negative for abdominal pain, nausea, vomiting, diarrhea, and constipation, Back: Negative for injury and pain, MS/Extremity: Negative for injury and deformity, Skin: Negative for injury, rash, and discoloration, Neuro: Negative for headache, weakness, numbness, tingling, and seizure, Psych: Negative for depression, anxiety, suicide ideation, homicidal ideation, and hallucinations, Allergy/Immunology: Negative for hives, rash, and allergies, Endocrine: Negative for neck swelling, polydipsia, polyuria, polyphagia, and marked weight changes, Hematologic/Lymphatic: Negative for swollen nodes, abnormal bleeding, and unusual bruising. 07:24 All other systems are negative. Exam: 07:25 Constitutional: This is a well developed, well nourished patient who is awake, alert, sp3 and in no acute distress. Head/Face: Normocephalic, atraumatic. ENT: Nares patent. No nasal discharge, no septal abnormalities noted. External auditory canals are clear. Oropharynx with no redness, swelling, or masses, exudates, or evidence of obstruction, uvula midline. Mucous membranes moist. Neck: Trachea midline, no thyromegaly or masses palpated, and no cervical lymphadenopathy. Supple, full range of motion without nuchal rigidity, or vertebral point tenderness. No Meningismus. Chest/axilla: Normal chest wall appearance and motion. Nontender with no deformity. No lesions are appreciated. Cardiovascular: Regular rate and rhythm with a normal S1 and S2. No gallops, murmurs, or rubs. Normal PMI, no JVD. No pulse deficits. Respiratory: Lungs have equal breath sounds bilaterally, clear to auscultation and percussion. No rales, rhonchi or wheezes noted. No increased work of breathing, no retractions or nasal flaring. Abdomen/GI: Soft, non-tender, with normal bowel sounds. No distension or tympany. No guarding or rebound. No evidence of tenderness throughout. Back: No spinal tenderness. No costovertebral tenderness. Full range of motion. Skin: Warm, dry with normal turgor. Normal color with no rashes, no lesions, and no evidence of cellulitis. MS/ Extremity: Pulses equal, no cyanosis. Neurovascular intact. Full, normal range of motion. Neuro: Awake and alert, GCS 15, oriented to person, place, time, and situation. Cranial nerves II-XII grossly intact. Motor strength 5/5 in all extremities. Sensory grossly intact. Cerebellar exam normal. Normal gait. Psych: Awake, alert, with orientation to person, place and time. Behavior, mood, and affect are within normal limits. 07:25 Eyes: X-ray exam of the eye is normal. Anterior chambers clear without hyphema. Pupils equal round reactive to light and extraocular movements are intact. Visual acuity is pending.. Vital Signs: 07:10 BP 146 / 89; Pulse 93; Resp 18 S; Temp 98.6(O); Pulse Ox 96% on R/A; Weight 91.63 kg kc6 (R); Height 5 ft. 7 in. (R); Pain 6/10; 08:20 BP 136 / 87; Pulse 79; Resp 19 S; Pulse Ox 99% on R/A; kc6 07:10 Body Mass Index 31.64 (91.63 kg, 170.18 cm) kc6 07:10 Pain Scale: Adult kc6 MDM: 07:11 Patient medically screened. sp3 07:25 Data reviewed: vital signs, nurses notes, old medical records, lab test result(s), sp3 radiologic studies. ED course: 51-year-old female with now resolved left sided blurry vision episode and now with mild headache. Patient blood sugars 403. Differential diagnosis includes hyperglycemia, early DKA, intracranial pathology, among others. I am not highly suspicious for glaucoma, retinal pathology, or any other primary ophthalmologic primary etiology of her symptoms. Will obtain CT scan of the head, laboratory values, and administer normal saline and insulin. Visual acuity is pending. Miguelito-Pen is not available in the ED currently.. 08:11 ED course: Miguelito-Pen was located and eye pressure on the left side is 13.. sp3 09:14 ED course: Laboratory values demonstrate no DKA or other dehydration. Glucose is coming sp3 down after insulin. Remainder workup is negative and we will safely discharge patient home at this time.. 08 07:18 Order name: CBC with Diff; Complete Time: 09:14 sp3 11/03 07:18 Order name: CMP; Complete Time: 09:14 sp3 11/03 07:18 Order name: Lipase; Complete Time: 09:14 sp3 11/03 07:18 Order name: Test, Urine sp3 11/03 07:18 Order name: Urinalysis w/ reflexes sp3 11/03 07:18 Order name: Lactate w/ 2H reflex if indic.; Complete Time: 09:14 sp3 11/03 07:59 Order name: Glucose, Ancillary Testing; Complete Time: 09:14 EDMS 11/03 09:10 Order name: Glucose, Ancillary Testing; Complete Time: 09:14 EDMS 11/03 07:18 Order name: CT Head Brain wo Cont; Complete Time: 07:47 sp3 11/03 07:18 Order name: IV Saline Lock; Complete Time: 07:51 sp3 11/03 07:18 Order name: Labs collected and sent; Complete Time: 07:51 sp3 Administered Medications: 07:50 Drug: NS 0.9% IV 1000 ml Route: IV; Rate: 1 bolus; Site: right wrist; kc6 08:58 Follow up: Response: No adverse reaction; IV Status: Completed infusion; IV Intake: kc6 1000ml 07:50 Drug: Insulin Regular Human IVP 10 units {Co-Signature: pf1 (Ruthy Sawant RN).} kc6 Route: IVP; Site: right wrist; 08:58 Follow up: Response: No adverse reaction; Blood sugar is lowered kc6 Disposition Summary: 11/03/22 09:15 Discharge Ordered Location: Home sp3 Condition: Stable sp3 Diagnosis - Hyperglycemia, blurry vision, headache sp3 Followup: sp3 - With: Private Physician - When: Upon discharge from the Emergency Department - Reason: Continuance of care Discharge Instructions: - Discharge Summary Sheet sp3 - Hyperglycemia sp3 Forms: - Medication Reconciliation Form sp3 - Thank You Letter sp3 - Antibiotic Education sp3 - Prescription Opioid Use sp3 - Patient Portal Instructions sp3 Signatures: Dispatcher [employer] Sridhar Walker MD MD sp3 Briana Gamble RN RN kc6 Ruthy Sawant RN pf1 Corrections: (The following items were deleted from the chart) 07:29 07:25 ED course: 51-year-old female with now resolved left sided blurry vision episode sp3 and now with mild headache. Patient blood sugars 403. Differential diagnosis includes hyperglycemia, early DKA, intracranial pathology, among others. I am not highly suspicious for glaucoma, retinal pathology, or any other primary ophthalmologic primary etiology of her symptoms. Will obtain CT scan of the head, laboratory values, and administer normal saline and insulin. Visual acuity is pending.. sp3
--- NOTE | 2022-11-03 09:16 | ER ---
Nurse's Notes [facility] Name: Chantelle Woodward Age: 51 yrs Sex: Female : 1970 Arrival Date: 11/03/2022 Time: 07:08 Bed 18 Private MD: Diagnosis: Hyperglycemia, blurry vision, headache Presentation: 11/03 07:10 Chief complaint: EMS states: [place] [address] [place] when she began to have kc6 blurry vision and pain 6/10 in her left eye. pt states the last time she this happened she had covid. pt has a previous hx of right eye injury. BGL en route 403. Coronavirus screen: At this time, the client does not indicate any symptoms associated with coronavirus-19. Ebola Screen: No symptoms or risks identified at this time. Initial Sepsis Screen: Does the patient meet any 2 criteria? No. Patient's initial sepsis screen is negative. Does the patient have a suspected source of infection? No. Patient's initial sepsis screen is negative. Risk Assessment: Do you want to hurt yourself or someone else? Patient reports no desire to harm self or others. Onset of symptoms was November 03, 2022. 07:10 Method Of Arrival: EMS: [facility] kc6 07:10 Acuity: ETRRY 3 kc6 Triage Assessment: 07:12 General: Appears in no apparent distress. comfortable, Behavior is calm, cooperative, kc6 appropriate for age. Pain: Complains of pain in left eye Pain does not radiate. Pain currently is 6 out of 10 on a pain scale. EENT: Reports blurred vision. Neuro: Level of Consciousness is awake, alert, obeys commands, Oriented to person, place, time, situation, Appropriate for age. Cardiovascular: Capillary refill < 3 seconds. Respiratory: Airway is patent Trachea midline Respiratory effort is even, unlabored, Respiratory pattern is regular, symmetrical. GI: No signs and/or symptoms were reported involving the gastrointestinal system. : No signs and/or symptoms were reported regarding the genitourinary system. Derm: No signs and/or symptoms reported regarding the dermatologic system. Skin is intact, is healthy with good turgor, Skin is pink, warm \T\ dry. Musculoskeletal: No signs and/or symptoms reported regarding the musculoskeletal system. Circulation, motion, and sensation intact. Capillary refill < 3 seconds, Range of motion: intact in all extremities. Historical: - Allergies: 07:12 SHELLFISH; kc6 - PMHx: 07:12 abscess; Diabetes - IDDM; Hypertensive disorder; kc6 - PSHx: 07:12 partial hysterectomy; Thyroidectomy; kc6 - Immunization history:: Client reports having NOT received the Covid vaccine. Flu vaccine is not up to date. - Social history:: Smoking status: Patient reports the use of cigarette tobacco products, smokes one-half pack cigarettes per day. Screenin:14 [facility] ED Fall Risk Assessment (Adult) History of falling in the last 3 months, kc6 including since admission No falls in past 3 months (0 pts) Confusion or Disorientation No (0 pts) Intoxicated or Sedated No (0 pts) Impaired Gait No (0 pts) Mobility Assist Device Used No (0 pt) Altered Elimination No (0 pt) Score/Fall Risk Level 0 - 2 = Low Risk. Abuse screen: Denies threats or abuse. Denies injuries from another. Nutritional screening: No deficits noted. Tuberculosis screening: No symptoms or risk factors identified. Assessment: 07:14 Reassessment: please see triage assessment. kc6 08:20 Reassessment: Patient appears in no apparent distress at this time. No changes from [facility] previously documented assessment. Patient and/or family updated on plan of care and expected duration. Pain level reassessed. Patient is alert, oriented x 3, equal unlabored respirations, skin warm/dry/pink. Vital Signs: 07:10 BP 146 / 89; Pulse 93; Resp 18 S; Temp 98.6(O); Pulse Ox 96% on R/A; Weight 91.63 kg kc6 (R); Height 5 ft. 7 in. (R); Pain 6/10; 08:20 BP 136 / 87; Pulse 79; Resp 19 S; Pulse Ox 99% on R/A; kc6 07:10 Body Mass Index 31.64 (91.63 kg, 170.18 cm) kc6 07:10 Pain Scale: Adult [facility] ED Course: 07:10 Patient arrived in ED. kc6 07:11 Sridhar Amaya MD is Attending Physician. sp3 07:12 Triage completed. kc6 07:12 Arm band placed on. kc6 07:14 Patient has correct armband on for positive identification. Bed in low position. Call [facility] light in reach. Side rails up X2. 07:33 CT Head Brain wo Cont In Process Unspecified. EDMS 07:34 Briana Gamble, RN is Primary Nurse. kc6 07:51 Inserted saline lock: 22 gauge in right wrist, using aseptic technique. Blood collected.kc6 09:29 No provider procedures requiring assistance completed. IV discontinued, intact, kc6 bleeding controlled, No redness/swelling at site. Pressure dressing applied. Administered Medications: 07:50 Drug: NS 0.9% IV 1000 ml Route: IV; Rate: 1 bolus; Site: right wrist; kc6 08:58 Follow up: Response: No adverse reaction; IV Status: Completed infusion; IV Intake: kc6 1000ml 07:50 Drug: Insulin Regular Human IVP 10 units {Co-Signature: pf1 (Rutyh Sawant RN).} kc6 Route: IVP; Site: right wrist; 08:58 Follow up: Response: No adverse reaction; Blood sugar is lowered kc6 Medication: 09:29 VIS not applicable for this client. kc6 Intake: 08:58 IV: 1000ml; Total: 1000ml. kc6 Outcome: 09:15 Discharge ordered by . sp3 09:29 Discharged to home ambulatory, with friend. kc6 09:29 Condition: stable 09:29 Discharge instructions given to patient, Instructed on discharge instructions, follow up and referral plans. Demonstrated understanding of instructions, follow-up care. 09:29 Patient left the ED. kc6 Signatures: Dispatcher [employer] Srihdar Walker MD MD sp3 Briana Gamble, RN RN kc6 Ruthy Sawant RN pf1
[2022-11-03 09:30] LABS: Specific Gravity > 1.030 (1.005-1.030); Urine Bilirubin NEGATIVE (Negative); Urine Blood Negative (Negative); Urine Clarity Clear (Clear); Urine Color Light-Yellow (Yellow); Urine Glucose 4+ (Over) (Negative); Urine Protein NEGATIVE (Negative); Urine Urobilinogen Normal (Normal); Urine pH 5.5 (5.0-7.0)
[2022-11-03 09:32] LABS: Specific Gravity 1.025 (1.005-1.030)
[2022-11-03 09:48] VITALS: TEMP 98.6
[2022-11-03 09:53] VITALS: BP 136/87; O2SAT 99
== END 2022-11-03 09:29 | disposition home or self-care (01) ==
LOC: ER 07:08
DX: R51.9 Headache, unspecified (principal); E11.65 Type 2 diabetes mellitus with hyperglycemia
CPT/HCPCS: 36415; 70450; 80053; 81003; 81025; 82947; 83605; 83690; 85025; J1815; J7030